=== PATIENT | female | born 1960 | race African-American/Black ===

== ENCOUNTER 2016-12-04 15:17 | Emergency (ER) | payer MEDICAID ==
[~2016-12-04] VITALS: Ht 162.6 cm; Wt 90.0 kg
[~2016-12-04 15:17] MED LIST: ALBU4TAB6 INH; BENA5TAB3 PO; DICY20TA11 PO; FLUT1DIS IH; GLIP5TAB12 PO; HYDR-3927 PO; OMEP40CA34 PO; TRIA1CAP PO
[2016-12-04] MEDS ORDERED: SODIUM CHLORIDE 0.9% 1,000 ML IV ONE (16:33)
[2016-12-04] MEDS ORDERED: FAMOTIDINE 20MG/2ML VIAL IV STA (16:33)
[2016-12-04] MEDS ORDERED: ONDANSETRON HCL 4MG/2ML VIAL IV STA (16:33)
[2016-12-04 17:11] LABS: BASOPHILS % 0.9 % (0.0-2.0); HEMATOCRIT. 37.7 % (36.0-48.0); HEMOGLOBIN. 12.9 g/dL (12.0-16.0); LYMPHOCYTES % 28.9 % (20.0-50.0); MEAN CORPUSCULAR HEMOGLOBIN 25.9 pg (28.0-32.0); MEAN CORPUSCULAR VOLUME 75.4 fL (81.0-99.0); MEAN PLATELET VOLUME 9.5 fl (7.4-10.4); MONOCYTES % 8.4 % (2.0-8.0); NEUTROPHILS % 59.8 % (40.0-76.0); PLATELET 245 x1000/uL (130-400); RED CELL DISTRIBUTION WIDTH 15.5 % (11.6-14.6)
[2016-12-04 17:14] LABS: CHLORIDE 104 mEq/L (98-107)
[2016-12-04 17:16] LABS: PROTHROMBIN TIME 10.7 sec (9.4-11.6)
[2016-12-04 17:18] LABS: CARBON DIOXIDE 28 mEq/L (21-32)
[2016-12-04 17:21] LABS: CLARITY URINE CLEAR (CLEAR); COLOR URINE YELLOW (YELLOW); GLUCOSE URINE NEGATIVE (NEGATIVE); KETONES URINE NEGATIVE (NEGATIVE); LEUKOCYTE ESTERASE URINE NEGATIVE (NEGATIVE); NITRITE URINE NEGATIVE (NEGATIVE); OCCULT BLOOD URINE TRACE (NEGATIVE); PROTEIN URINE NEGATIVE (NEGATIVE); SPECIFIC GRAVITY URINE 1.012 (1.005-1.030); UROBILINOGEN URINE 0.2 E.U./dL (0.2-1.0)
[2016-12-04 18:45] VITALS: BP 136/87
[2016-12-04] MEDS ORDERED: ACETAMINOPHEN 325MG TABLET PO ONE (19:00)
== END 2016-12-04 19:11 | disposition home or self-care (01) ==
LOC: ER 15:22
DX: R11.2 Nausea with vomiting, unspecified (principal); R19.7 Diarrhea, unspecified; B86 Scabies; M79.602 Pain in left arm; M79.601 Pain in right arm; I10 Essential (primary) hypertension; E11.9 Type 2 diabetes mellitus without complications; J45.909 Unspecified asthma, uncomplicated; M19.90 Unspecified osteoarthritis, unspecified site
CPT/HCPCS: 36415; 80053; 81001; 81025; 83605; 83690; 85025; 85610; 93005; 96361; 96374; 96375; 99285; J2405; J3490; J7030; Z7610

== ENCOUNTER 2017-07-16 14:52 | Emergency (ER) | payer OTHER ==
[~2017-07-16] VITALS: Ht 162.6 cm; Wt 80.0 kg
[2017-07-16 18:49] LABS: BASOPHILS % 0.8 % (0.0-2.0); HEMATOCRIT. 36.7 % (36.0-48.0); HEMOGLOBIN. 12.5 g/dL (12.0-16.0); LYMPHOCYTES % 30.9 % (20.0-50.0); MEAN CORPUSCULAR HEMOGLOBIN 25.4 pg (28.0-32.0); MEAN CORPUSCULAR VOLUME 74.3 fL (81.0-99.0); MEAN PLATELET VOLUME 8.9 fl (7.4-10.4); MONOCYTES % 8.8 % (2.0-8.0); NEUTROPHILS % 57.5 % (40.0-76.0); PLATELET 229 x1000/uL (130-400); RED BLOOD CELL COUNT 4.93 mill/uL (4.2-5.4); RED CELL DISTRIBUTION WIDTH 15.9 % (11.6-14.6)
[2017-07-16 18:54] LABS: CHLORIDE 105 mEq/L (98-107)
[2017-07-16 18:56] LABS: PROTHROMBIN TIME 10.7 sec (9.4-11.6)
[2017-07-16 20:33] VITALS: BP 140/85
== END 2017-07-16 20:33 | disposition home or self-care (01) ==
LOC: ER 14:56
DX: J06.9 Acute upper respiratory infection, unspecified (principal); B34.9 Viral infection, unspecified; E11.9 Type 2 diabetes mellitus without complications; E78.00 Pure hypercholesterolemia, unspecified; I10 Essential (primary) hypertension; J45.909 Unspecified asthma, uncomplicated; Z79.84 Long term (current) use of oral hypoglycemic drugs; Z90.49 Acquired absence of other specified parts of digestive tract; Z96.659 Presence of unspecified artificial knee joint
CPT/HCPCS: 36415; 71045; 80053; 83880; 84484; 85025; 85610; 93005; 99285; J7040; Z7610

== ENCOUNTER 2017-12-04 15:11 | Emergency (ER) | payer OTHER, MEDICAID ==
[~2017-12-04 15:11] MED LIST changes: -BENA5TAB3 PO; +BENA5TAB6 PO
[2017-12-04] MEDS ORDERED: ASPIRIN 81MG TABLET PO ONE (16:45)
[2017-12-04 18:32] LABS: BASOPHILS % 0.6 % (0.0-2.0); CHLORIDE 105 mEq/L (98-107); EOSINOPHILS % 1.8 % (0.0-5.0); HEMATOCRIT. 41.1 % (36.0-48.0); HEMOGLOBIN. 14.1 g/dL (12.0-16.0); LYMPHOCYTES % 32.2 % (20.0-50.0); MEAN CORPUSCULAR HEMOGLOBIN 26.3 pg (28.0-32.0); MEAN CORPUSCULAR VOLUME 76.6 fL (81.0-99.0); MEAN PLATELET VOLUME 9.5 fl (7.4-10.4); MONOCYTES % 6.9 % (2.0-8.0); NEUTROPHILS % 58.5 % (40.0-76.0); PLATELET 220 x1000/uL (130-400); RED BLOOD CELL COUNT 5.37 mill/uL (4.2-5.4); RED CELL DISTRIBUTION WIDTH 15.6 % (11.6-14.6)
[2017-12-04 18:33] LABS: PARTIAL THROMBOPLASTIN TIME 25.6 sec (23.4-31.0); PROTHROMBIN TIME 10.4 sec (9.1-11.1)
[2017-12-04] MEDS ORDERED: IBUPROFEN 400MG TABLET PO ONE (19:15)
[2017-12-04 20:00] VITALS: BP 139/83
== END 2017-12-04 20:20 | disposition home or self-care (01) ==
LOC: ER 16:28
DX: S93.402A Sprain of unspecified ligament of left ankle, initial encounter (principal); H60.92 Unspecified otitis externa, left ear; R07.9 Chest pain, unspecified; E11.9 Type 2 diabetes mellitus without complications; I20.9 Angina pectoris, unspecified; Z90.49 Acquired absence of other specified parts of digestive tract; Z79.899 Other long term (current) drug therapy; Z96.651 Presence of right artificial knee joint; W18.39XA Other fall on same level, initial encounter; Y93.89 Activity, other specified; Y92.89 Other specified places as the place of occurrence of the external cause; Y99.8 Other external cause status
CPT/HCPCS: 36415; 71045; 73610; 80053; 83880; 84484; 85025; 85610; 85730; 93005; 99284; 99285

== ENCOUNTER 2018-01-24 06:55 | Emergency (ER) | payer OTHER, MEDICAID ==
[~2018-01-24] VITALS: Ht 170.2 cm; Wt 91.0 kg
[2018-01-24] MEDS ORDERED: MORPHINE SULFATE 2 MG/ML CPJ (NOT FOR IM USE) IV ONE (07:30)
[2018-01-24 07:32] LABS: BASOPHILS % 0.6 % (0.0-2.0); EOSINOPHILS % 2.2 % (0.0-5.0); HEMATOCRIT. 40.6 % (36.0-48.0); HEMOGLOBIN. 13.9 g/dL (12.0-16.0); LYMPHOCYTES % 29.6 % (20.0-50.0); MEAN CORPUSCULAR HEMOGLOBIN 26.2 pg (28.0-32.0); MEAN CORPUSCULAR VOLUME 76.6 fL (81.0-99.0); MEAN PLATELET VOLUME 9.2 fl (7.4-10.4); MONOCYTES % 7.1 % (2.0-8.0); NEUTROPHILS % 60.5 % (40.0-76.0); PLATELET 218 x1000/uL (130-400); RED CELL DISTRIBUTION WIDTH 15.3 % (11.6-14.6)
[2018-01-24 07:44] LABS: CHLORIDE 105 mEq/L (98-107)
[2018-01-24 07:48] LABS: PROTHROMBIN TIME 10.2 sec (9.1-11.1)
[2018-01-24] MEDS ORDERED: MAGNESIUM/ALUMINUM HYDROXIDE/SIMETHICONE 30ML UDC PO STA (10:03)
[2018-01-24] MEDS ORDERED: VISCOUS LIDOCAINE 2% 15 ML UDC PO STA (10:03)
[2018-01-24 10:27] VITALS: BP 121/59
== END 2018-01-24 10:32 | disposition home or self-care (01) ==
LOC: ER 06:55
DX: R07.9 Chest pain, unspecified (principal); R19.7 Diarrhea, unspecified; E11.9 Type 2 diabetes mellitus without complications; I10 Essential (primary) hypertension; I20.9 Angina pectoris, unspecified; M19.90 Unspecified osteoarthritis, unspecified site; Z79.899 Other long term (current) drug therapy
CPT/HCPCS: 36415; 71045; 74176; 76700; 80053; 83880; 84484; 85025; 85610; 93005; 96374; 99285; J2270

== ENCOUNTER 2018-08-08 15:09 | Inpatient (IN) | payer MEDICAID, OTHER ==
[~2018-08-08] VITALS: Ht 170.2 cm; Wt 103.6 kg
[2018-08-08] MEDS ORDERED: ASPIRIN 81MG TABLET PO ONE (15:45)
[2018-08-08] MEDS ORDERED: VISCOUS LIDOCAINE 2% 15 ML UDC PO ONE (16:00)
[2018-08-08] MEDS ORDERED: MAGNESIUM/ALUMINUM HYDROXIDE/SIMETHICONE 30ML UDC PO ONE (16:00)
[2018-08-08] MEDS ORDERED: ONDANSETRON HCL 4MG/2ML INJ IV ONE (16:00)
[2018-08-08 16:34] LABS: CLARITY URINE CLEAR (CLEAR); COLOR URINE YELLOW (YELLOW); KETONES URINE NEGATIVE (NEGATIVE); LEUKOCYTE ESTERASE URINE NEGATIVE (NEGATIVE); NITRITE URINE NEGATIVE (NEGATIVE); OCCULT BLOOD URINE TRACE (NEGATIVE); PH URINE 6.5 (4.5-8.0); PROTEIN URINE NEGATIVE (NEGATIVE); SPECIFIC GRAVITY URINE 1.014 (1.005-1.030)
[2018-08-08 16:36] LABS: BASOPHILS % 0.6 % (0.0-2.0); EOSINOPHILS % 2.9 % (0.0-5.0); HEMATOCRIT. 39.9 % (36.0-48.0); HEMOGLOBIN. 13.7 g/dL (12.0-16.0); LYMPHOCYTES % 35.4 % (20.0-50.0); MEAN CORPUSCULAR HEMOGLOBIN 26.4 pg (28.0-32.0); MEAN CORPUSCULAR VOLUME 76.7 fL (81.0-99.0); MEAN PLATELET VOLUME 9.4 fl (7.4-10.4); MONOCYTES % 8.5 % (2.0-8.0); NEUTROPHILS % 52.6 % (40.0-76.0); PLATELET 235 x1000/uL (130-400); RED CELL DISTRIBUTION WIDTH 15.2 % (11.6-14.6)
[2018-08-08 16:38] LABS: CHLORIDE 106 mEq/L (98-107)
[2018-08-08 21:20] VITALS: BP 154/71
[2018-08-08 21:29] VITALS: BP 154/71
[2018-08-08] MEDS ORDERED: DEXTROSE 50% WATER 50ML SYRINGE IV PRN (22:30)
[2018-08-08] MEDS: MORPHINE SULFATE 4 MG/ML CPJ (NOT FOR IM USE) IV PRN (23:28)
[2018-08-08] MEDS: ENOXAPARIN 30MG/0.3ML SYR SUBCUT SCH (23:29)
[2018-08-08] MEDS: METOPROLOL TARTRATE 50MG TABLET PO SCH (23:29)
[2018-08-09] VITALS: BP 147/67
[2018-08-09] MEDS: INSULIN GLARGINE UD 100 UNITS/ML SYR SUBCUT SCH ×2 (00:30→22:29)
[2018-08-09 04:00] VITALS: BP 125/76
[2018-08-09] MEDS: MORPHINE SULFATE 4 MG/ML CPJ (NOT FOR IM USE) IV PRN ×2 (04:33→18:45)
[2018-08-09] MEDS: BLOOD SUGAR DIAGNOSTIC STRIP TEST SCH ×4 (06:36→21:00)
[2018-08-09] MEDS: NITROGLYCERIN OINT 1GM/INCH UDPKT TD SCH ×3 (06:36→22:28)
[2018-08-09] MEDS: INSULIN LISPRO 100 UNITS/ML SUBCUT SCH ×4 (06:37→20:51)
[2018-08-09 06:49] LABS: BASOPHILS % 0.4 % (0.0-2.0); EOSINOPHILS % 3.3 % (0.0-5.0); HEMATOCRIT. 38.1 % (36.0-48.0); HEMOGLOBIN. 13.2 g/dL (12.0-16.0); MEAN CORPUSCULAR HEMOGLOBIN 26.3 pg (28.0-32.0); MEAN CORPUSCULAR VOLUME 76.3 fL (81.0-99.0); MEAN PLATELET VOLUME 8.9 fl (7.4-10.4); MONOCYTES % 7.8 % (2.0-8.0); NEUTROPHILS % 51.5 % (40.0-76.0); PLATELET 222 x1000/uL (130-400); RED CELL DISTRIBUTION WIDTH 15.2 % (11.6-14.6)
[2018-08-09 07:25] LABS: CHLORIDE 107 mEq/L (98-107)
[2018-08-09 07:36] LABS: LDL CHOLESTEROL 100 mg/dL (5-100)
[2018-08-09 07:37] LABS: HDL CHOLESTEROL 71 mg/dL (40-59)
[2018-08-09 08:00] VITALS: BP 114/64
[2018-08-09] MEDS: METOPROLOL TARTRATE 50MG TABLET PO SCH ×2 (08:34→20:47)
[2018-08-09] MEDS: ASPIRIN 81MG TABLET PO SCH (08:34)
[2018-08-09] MEDS: ENOXAPARIN 30MG/0.3ML SYR SUBCUT SCH ×2 (08:34→20:48)
[2018-08-09] MEDS: OMEPRAZOLE 20MG CAPSULE EXTENDED RELEASE PO SCH (09:44)
[2018-08-09 12:00] VITALS: BP 97/67
[2018-08-09 16:00] VITALS: BP 118/65
[2018-08-09 19:51] VITALS: BP 96/45
[2018-08-09] MEDS ORDERED: ATORVASTATIN CALCIUM 40MG TABLET PO SCH (21:00)
[2018-08-10] VITALS: BP 119/63
[2018-08-10 04:00] VITALS: BP 141/87
[2018-08-10] MEDS: OMEPRAZOLE 20MG CAPSULE EXTENDED RELEASE PO SCH (06:17)
[2018-08-10] MEDS: MORPHINE SULFATE 4 MG/ML CPJ (NOT FOR IM USE) IV PRN (06:17)
[2018-08-10] MEDS: INSULIN LISPRO 100 UNITS/ML SUBCUT SCH ×2 (06:30→12:20)
[2018-08-10] MEDS: NITROGLYCERIN OINT 1GM/INCH UDPKT TD SCH (06:30)
[2018-08-10] MEDS: BLOOD SUGAR DIAGNOSTIC STRIP TEST SCH ×2 (06:30→12:15)
[2018-08-10 06:32] LABS: BASOPHILS % 0.4 % (0.0-2.0); EOSINOPHILS % 3.3 % (0.0-5.0); HEMATOCRIT. 38.5 % (36.0-48.0); HEMOGLOBIN. 13.4 g/dL (12.0-16.0); LYMPHOCYTES % 33.1 % (20.0-50.0); MEAN CORPUSCULAR HEMOGLOBIN 26.8 pg (28.0-32.0); MEAN CORPUSCULAR VOLUME 77.1 fL (81.0-99.0); MEAN PLATELET VOLUME 9.6 fl (7.4-10.4); MONOCYTES % 7.4 % (2.0-8.0); NEUTROPHILS % 55.8 % (40.0-76.0); PLATELET 226 x1000/uL (130-400); RED BLOOD CELL COUNT 4.99 mill/uL (4.2-5.4); RED CELL DISTRIBUTION WIDTH 15.5 % (11.6-14.6)
[2018-08-10 06:46] LABS: CHLORIDE 104 mEq/L (98-107)
[2018-08-10 08:00] VITALS: BP 128/77
[2018-08-10] MEDS: METOPROLOL TARTRATE 50MG TABLET PO SCH (08:26)
[2018-08-10] MEDS: ASPIRIN 81MG TABLET PO SCH (08:26)
[2018-08-10] MEDS: ENOXAPARIN 30MG/0.3ML SYR SUBCUT SCH (08:27)
[2018-08-10 12:00] VITALS: BP 111/58
[2018-08-10 12:56] VITALS: BP 111/58
== END 2018-08-10 14:07 | disposition home or self-care (01) | DRG 243 ==
LOC: ER 15:09 → 5WST 19:25 → EDBEDREQ 19:27 → EDBEDREQTM 19:27 → ENRESERV 20:42
PROVIDERS: ADMIT Internal Medicine; ATTEND Internal Medicine
DX: K21.9 Gastro-esophageal reflux disease without esophagitis (principal); K76.0 Fatty (change of) liver, not elsewhere classified; R16.0 Hepatomegaly, not elsewhere classified; E11.9 Type 2 diabetes mellitus without complications; E66.9 Obesity, unspecified; I10 Essential (primary) hypertension; Z96.652 Presence of left artificial knee joint; Z90.49 Acquired absence of other specified parts of digestive tract; Z68.35 Body mass index [BMI] 35.0-35.9, adult; Z79.899 Other long term (current) drug therapy
CPT/HCPCS: 36415; 71045; 72050; 76705; 80048; 80061; 82962; 83036; 83520; 83880; 84484; 93005; 93306; 97116; 97161; 99285; C1893; J1650; J1815; J2270; J2405

== ENCOUNTER 2018-11-22 06:49 | Emergency (ER) | payer MEDICAID ==
[~2018-11-22] VITALS: Ht 160 cm; Wt 91.0 kg
[2018-11-22 08:16] LABS: CLARITY URINE CLOUDY (CLEAR); COLOR URINE YELLOW (YELLOW); KETONES URINE NEGATIVE (NEGATIVE); LEUKOCYTE ESTERASE URINE TRACE (NEGATIVE); NITRITE URINE NEGATIVE (NEGATIVE); OCCULT BLOOD URINE NEGATIVE (NEGATIVE); PH URINE 5.5 (4.5-8.0); PROTEIN URINE NEGATIVE (NEGATIVE); SPECIFIC GRAVITY URINE 1.021 (1.005-1.030); UROBILINOGEN URINE 0.2 E.U./dL (0.2-1.0)
[2018-11-22] MEDS ORDERED: ACETAMINOPHEN 325MG TABLET PO STA (08:39)
[2018-11-22] MEDS ORDERED: KETOROLAC 30MG/ML VIAL IV STA (08:39)
[2018-11-22] MEDS ORDERED: SODIUM CHLORIDE 0.9% 1,000 ML IV ONE (08:39)
[2018-11-22] MEDS ORDERED: ONDANSETRON HCL 4MG/2ML INJ IV STA (08:39)
[2018-11-22 09:41] LABS: BASOPHILS % 0.9 % (0.0-2.0); EOSINOPHILS % 2.7 % (0.0-5.0); HEMATOCRIT. 39.4 % (36.0-48.0); HEMOGLOBIN. 13.9 g/dL (12.0-16.0); LYMPHOCYTES % 24.7 % (20.0-50.0); MEAN CORPUSCULAR VOLUME 76.7 fL (81.0-99.0); MEAN PLATELET VOLUME 9.6 fl (7.4-10.4); MONOCYTES % 6.8 % (2.0-8.0); NEUTROPHILS % 64.9 % (40.0-76.0); PLATELET 236 x1000/uL (130-400); RED BLOOD CELL COUNT 5.14 mill/uL (4.2-5.4); RED CELL DISTRIBUTION WIDTH 15.3 % (11.6-14.6)
[2018-11-22 09:42] LABS: CHLORIDE 107 mEq/L (98-107)
[2018-11-22 13:00] VITALS: BP 131/69
== END 2018-11-22 13:05 | disposition home or self-care (01) ==
LOC: ER 06:49 → CVICU 06:50 → UNDOADMIN 06:50 → ER 13:05
DX: R10.9 Unspecified abdominal pain (principal); R11.2 Nausea with vomiting, unspecified; E11.9 Type 2 diabetes mellitus without complications; I10 Essential (primary) hypertension; Z96.659 Presence of unspecified artificial knee joint; Z79.899 Other long term (current) drug therapy
CPT/HCPCS: 36415; 74177; 80053; 81003; 81025; 82962; 83690; 85025; 96361; 96374; 96375; 99284; J1885; J2405; J7030

== ENCOUNTER 2019-06-05 15:00 | Emergency (ER) | payer MEDICAID ==
[~2019-06-05] VITALS: Ht 160 cm; Wt 90.0 kg
[~2019-06-05 15:00] MED LIST changes: +OMEP40CA12 PO; -OMEP40CA34 PO
[2019-06-05 19:09] VITALS: BP 158/88
[2019-06-05] MEDS ORDERED: IBUPROFEN 600MG TABLET PO STA (20:40)
[2019-06-05 21:21] LABS: BASOPHILS % 0.8 % (0.0-2.0); EOSINOPHILS % 3.7 % (0.0-5.0); HEMATOCRIT. 39.2 % (36.0-48.0); HEMOGLOBIN. 13.4 g/dL (12.0-16.0); LYMPHOCYTES % 32.5 % (20.0-50.0); MEAN CORPUSCULAR HEMOGLOBIN 26.2 pg (28.0-32.0); MEAN CORPUSCULAR VOLUME 76.8 fL (81.0-99.0); MEAN PLATELET VOLUME 9.2 fl (7.4-10.4); MONOCYTES % 7.9 % (2.0-8.0); NEUTROPHILS % 55.1 % (40.0-76.0); PLATELET 233 x1000/uL (130-400); RED BLOOD CELL COUNT 5.11 mill/uL (4.2-5.4); RED CELL DISTRIBUTION WIDTH 15.5 % (11.6-14.6)
[2019-06-05 21:26] LABS: CHLORIDE 105 mEq/L (98-107)
== END 2019-06-05 22:40 | disposition left against medical advice (07) ==
LOC: ER 15:00
DX: R07.9 Chest pain, unspecified (principal); E11.9 Type 2 diabetes mellitus without complications; I10 Essential (primary) hypertension; Z96.659 Presence of unspecified artificial knee joint
CPT/HCPCS: 36415; 71045; 80053; 84484; 85025; 93005; 99285

== ENCOUNTER 2019-06-06 10:12 | Inpatient (IN) | payer MEDICAID ==
[~2019-06-06] VITALS: Ht 160 cm; Wt 95.3 kg
[2019-06-06] MEDS ORDERED: ASPIRIN 81MG TABLET PO ONE (14:45)
[2019-06-06 15:23] LABS: BASOPHILS % 0.8 % (0.0-2.0); EOSINOPHILS % 3.3 % (0.0-5.0); HEMATOCRIT. 41.2 % (36.0-48.0); HEMOGLOBIN. 14.1 g/dL (12.0-16.0); LYMPHOCYTES % 32.6 % (20.0-50.0); MEAN CORPUSCULAR HEMOGLOBIN 26.5 pg (28.0-32.0); MEAN CORPUSCULAR VOLUME 77.4 fL (81.0-99.0); MEAN PLATELET VOLUME 9.3 fl (7.4-10.4); MONOCYTES % 6.3 % (2.0-8.0); PLATELET 253 x1000/uL (130-400); RED BLOOD CELL COUNT 5.32 mill/uL (4.2-5.4); RED CELL DISTRIBUTION WIDTH 15.1 % (11.6-14.6)
[2019-06-06 15:29] LABS: CHLORIDE 103 mEq/L (98-107)
[2019-06-06] MEDS ORDERED: NITROGLYCERIN 0.4MG TABLET SL SL ONE ×2 (16:30→20:45)
[2019-06-06] MEDS ORDERED: ONDANSETRON HCL 4MG/2ML INJ IV PRN (19:30)
[2019-06-06] MEDS ORDERED: DEXTROSE 50% WATER 50ML SYRINGE IV PRN (19:30)
[2019-06-06 20:32] LABS: CLARITY URINE CLEAR (CLEAR); COLOR URINE YELLOW (YELLOW); KETONES URINE NEGATIVE (NEGATIVE); LEUKOCYTE ESTERASE URINE TRACE (NEGATIVE); NITRITE URINE NEGATIVE (NEGATIVE); OCCULT BLOOD URINE NEGATIVE (NEGATIVE); PROTEIN URINE NEGATIVE (NEGATIVE); SPECIFIC GRAVITY URINE 1.009 (1.005-1.030); UROBILINOGEN URINE 0.2 E.U./dL (0.2-1.0)
[2019-06-06 21:19] LABS: *AMPHETAMINES SCREEN URINE NEGATIVE (NEGATIVE); *BARBITURATES SCREEN URINE NEGATIVE (NEGATIVE); *BENZODIAZEPINES SCREEN URINE NEGATIVE (NEGATIVE); *COCAINE SCREEN URINE NEGATIVE (NEGATIVE); METHADONE URINE SCREEN NEGATIVE (NEGATIVE); OPIATES URINE SCREEN NEGATIVE (NEGATIVE)
[2019-06-06 21:20] LABS: CANNABINOID URINE SCREEN NEGATIVE (NEGATIVE); PHENCYCLIDINE URINE SCREEN NEGATIVE (NEGATIVE)
[2019-06-06 22:25] VITALS: BP 124/59
[2019-06-06 23:04] VITALS: BP 124/59
[2019-06-07] VITALS: BP 112/52
[2019-06-07 04:00] VITALS: BP 131/77
[2019-06-07] MEDS: BLOOD SUGAR DIAGNOSTIC STRIP TEST SCH ×4 (06:21→21:00)
[2019-06-07] MEDS: INSULIN LISPRO 100 UNITS/ML SUBCUT SCH ×4 (06:28→21:00)
[2019-06-07 07:50] VITALS: BP 117/58
[2019-06-07] MEDS: KETOROLAC 30MG/ML VIAL IV PRN ×2 (07:54→16:59)
[2019-06-07 12:00] VITALS: BP 128/51
[2019-06-07] MEDS: ASPIRIN 81MG EC TABLET PO SCH (12:00)
[2019-06-07] MEDS: METOPROLOL TARTRATE 25MG TABLET PO SCH ×2 (12:01→22:40)
[2019-06-07] MEDS: ENOXAPARIN 30MG/0.3ML SYR SUBCUT SCH ×2 (12:02→22:41)
[2019-06-07 16:00] VITALS: BP 128/51
[2019-06-07 20:00] VITALS: BP 129/56
[2019-06-08] VITALS: BP 104/41
[2019-06-08] MEDS: KETOROLAC 30MG/ML VIAL IV PRN ×2 (00:50→10:06)
[2019-06-08 04:00] VITALS: BP 113/62
[2019-06-08] MEDS: BLOOD SUGAR DIAGNOSTIC STRIP TEST SCH ×2 (06:36→12:27)
[2019-06-08 07:03] LABS: CHLORIDE 104 mEq/L (98-107)
[2019-06-08 07:17] LABS: BASOPHILS % 0.5 % (0.0-2.0); EOSINOPHILS % 2.9 % (0.0-5.0); HEMATOCRIT. 36.9 % (36.0-48.0); HEMOGLOBIN. 12.9 g/dL (12.0-16.0); LYMPHOCYTES % 37.9 % (20.0-50.0); MEAN CORPUSCULAR HEMOGLOBIN 26.6 pg (28.0-32.0); MEAN CORPUSCULAR VOLUME 75.9 fL (81.0-99.0); MEAN PLATELET VOLUME 9.8 fl (7.4-10.4); MONOCYTES % 9.5 % (2.0-8.0); NEUTROPHILS % 49.2 % (40.0-76.0); PLATELET 235 x1000/uL (130-400); RED BLOOD CELL COUNT 4.86 mill/uL (4.2-5.4); RED CELL DISTRIBUTION WIDTH 15.4 % (11.6-14.6)
[2019-06-08] MEDS: INSULIN LISPRO 100 UNITS/ML SUBCUT SCH ×2 (07:50→12:27)
[2019-06-08 08:00] VITALS: BP 132/67
[2019-06-08] MEDS ORDERED: ALBUTEROL SULFATE INH SCH (08:30)
[2019-06-08] MEDS ORDERED: FLUTICASONE IH SCH (08:30)
[2019-06-08] MEDS ORDERED: HYDROCODONE/ACETAMINOPHEN 5/325MG TABLET PO PRN (08:30)
[2019-06-08] MEDS ORDERED: SALMETEROL IH SCH (08:30)
[2019-06-08] MEDS ORDERED: BENAZEPRIL 5MG TABLET PO SCH (09:00)
[2019-06-08] MEDS ORDERED: MEDICATION NOT ON FORMULARY EA (Omeprazole 40 MG) PO SCH (09:00)
[2019-06-08] MEDS: ENOXAPARIN 30MG/0.3ML SYR SUBCUT SCH (09:31)
[2019-06-08] MEDS: METOPROLOL TARTRATE 25MG TABLET PO SCH (09:32)
[2019-06-08] MEDS: ASPIRIN 81MG EC TABLET PO SCH (09:32)
[2019-06-08] MEDS ORDERED: PANTOPRAZOLE 40MG DR TABLET PO SCH (10:00)
[2019-06-08] MEDS ORDERED: GLIPIZIDE 5MG TABLET PO SCH (10:00)
[2019-06-08] MEDS: DICYCLOMINE HCL 20MG TABLET PO SCH ×2 (10:05→12:28)
[2019-06-08] MEDS ORDERED: CLOPIDOGREL 75MG TABLET PO SCH (11:30)
[2019-06-08 12:00] VITALS: BP 108/84
[2019-06-08] MEDS ORDERED: ALBUTEROL (0.083%) 2.5MG/3ML NEB HHN SCH (12:00)
[2019-06-08] MEDS ORDERED: BUDESONIDE 0.5MG/2ML NEB HHN SCH (12:00)
[2019-06-08] MEDS ORDERED: ASPI-1158 PO (15:16)
[2019-06-08] MEDS ORDERED: METO-539 PO (15:16)
[2019-06-08] MEDS ORDERED: ATOR20TA PO (15:16)
[2019-06-08] MEDS ORDERED: NITR0.4T49 SL (15:16)
[2019-06-08] MEDS ORDERED: ACET650T37 MT (15:16)
[2019-06-08] MEDS ORDERED: CLOP75TA15 PO (15:16)
[2019-06-08 15:42] VITALS: BP 108/84
[2019-06-08] MEDS ORDERED: METOPROLOL TARTRATE 50MG TABLET PO SCH (21:00)
[2019-06-08] MEDS ORDERED: ATORVASTATIN CALCIUM 20MG TABLET PO SCH (21:00)
== END 2019-06-08 16:30 | disposition home or self-care (01) | DRG 203 ==
LOC: ER 10:36 → 5WST 18:14 → EDBEDREQ 18:16 → EDBEDREQTM 18:16 → ENRESERV 21:16 → 6WST 06-07 08:07
PROVIDERS: ADMIT Internal Medicine; ATTEND Internal Medicine
DX: M94.0 Chondrocostal junction syndrome [Tietze] (principal); M48.02 Spinal stenosis, cervical region; E11.9 Type 2 diabetes mellitus without complications; E66.9 Obesity, unspecified; E78.5 Hyperlipidemia, unspecified; F17.210 Nicotine dependence, cigarettes, uncomplicated; I10 Essential (primary) hypertension; J45.909 Unspecified asthma, uncomplicated; Z96.659 Presence of unspecified artificial knee joint; M19.90 Unspecified osteoarthritis, unspecified site; Z83.3 Family history of diabetes mellitus; Z90.49 Acquired absence of other specified parts of digestive tract; Z79.899 Other long term (current) drug therapy; Z71.6 Tobacco abuse counseling; Z71.3 Dietary counseling and surveillance; Z68.37 Body mass index [BMI] 37.0-37.9, adult
CPT/HCPCS: 36415; 80048; 80053; 80305; 81003; 82962; 83880; 84484; 85025; 93005; 93306; 99285; J1650; J1815; J1885

== ENCOUNTER 2019-11-20 16:01 | Emergency (ER) | payer MEDICAID ==
[~2019-11-20] VITALS: Ht 160 cm; Wt 91.0 kg
[~2019-11-20 16:01] MED LIST changes: +ACET650T37 MT; +ASPI-1158 PO; +ATOR20TA PO; -BENA5TAB6 PO; +CLOP75TA15 PO; +METO-539 PO; +NITR0.4T49 SL; -TRIA1CAP PO
[2019-11-20] MEDS ORDERED: SODIUM CHLORIDE 0.9% 1,000 ML IV ONE (17:15)
[2019-11-20] MEDS ORDERED: ASPIRIN 81MG TABLET PO ONE (17:15)
[2019-11-20 17:39] LABS: BASOPHILS % 0.5 % (0.0-2.0); EOSINOPHILS % 1.5 % (0.0-5.0); HEMATOCRIT. 40.6 % (36.0-48.0); HEMOGLOBIN. 13.7 g/dL (12.0-16.0); LYMPHOCYTES % 30.5 % (20.0-50.0); MEAN CORPUSCULAR HEMOGLOBIN 26.2 pg (28.0-32.0); MEAN CORPUSCULAR VOLUME 77.7 fL (81.0-99.0); MEAN PLATELET VOLUME 10.1 fl (7.4-10.4); MONOCYTES % 7.4 % (2.0-8.0); NEUTROPHILS % 60.1 % (40.0-76.0); PLATELET 221 x1000/uL (130-400); RED BLOOD CELL COUNT 5.23 mill/uL (4.2-5.4); RED CELL DISTRIBUTION WIDTH 15.3 % (11.6-14.6)
[2019-11-20 17:44] LABS: CHLORIDE 104 mEq/L (98-107)
[2019-11-20 19:01] LABS: CLARITY URINE CLEAR (CLEAR); COLOR URINE YELLOW (YELLOW); KETONES URINE NEGATIVE (NEGATIVE); LEUKOCYTE ESTERASE URINE 2+ (NEGATIVE); NITRITE URINE NEGATIVE (NEGATIVE); OCCULT BLOOD URINE NEGATIVE (NEGATIVE); PH URINE 7.5 (4.5-8.0); PROTEIN URINE NEGATIVE (NEGATIVE); SPECIFIC GRAVITY URINE 1.012 (1.005-1.030); UROBILINOGEN URINE 0.2 E.U./dL (0.2-1.0)
[2019-11-20] MEDS ORDERED: VISCOUS LIDOCAINE 2% 15 ML UDC PO STA (21:19)
[2019-11-20] MEDS ORDERED: MAGNESIUM/ALUMINUM HYDROXIDE/SIMETHICONE 30ML UDC PO STA (21:19)
[2019-11-20 22:23] VITALS: BP 118/77
== END 2019-11-20 22:22 | disposition home or self-care (01) ==
LOC: ER 16:01
DX: R07.9 Chest pain, unspecified (principal); R53.1 Weakness; E11.9 Type 2 diabetes mellitus without complications; E78.00 Pure hypercholesterolemia, unspecified; I10 Essential (primary) hypertension; Z79.82 Long term (current) use of aspirin; Z90.49 Acquired absence of other specified parts of digestive tract; Z96.659 Presence of unspecified artificial knee joint
CPT/HCPCS: 36415; 71045; 80053; 81003; 84484; 85025; 93005; 96360; 99285; J7030; Z7610

== ENCOUNTER 2019-12-19 13:16 | Emergency (ER) | payer MEDICAID ==
[~2019-12-19] VITALS: Ht 170.2 cm; Wt 104.0 kg
[2019-12-19] MEDS ORDERED: SODIUM CHLORIDE 0.9% 1,000 ML IV ONE (13:54)
[2019-12-19] MEDS ORDERED: ONDANSETRON HCL 4MG/2ML INJ IV STA (13:54)
[2019-12-19 14:29] LABS: EOSINOPHILS % 1.5 % (0.0-5.0); HEMATOCRIT. 38.5 % (36.0-48.0); HEMOGLOBIN. 13.3 g/dL (12.0-16.0); MEAN CORPUSCULAR HEMOGLOBIN 26.7 pg (28.0-32.0); MEAN PLATELET VOLUME 9.5 fl (7.4-10.4); MONOCYTES % 8.5 % (2.0-8.0); PLATELET 220 x1000/uL (130-400); RED BLOOD CELL COUNT 4.99 mill/uL (4.2-5.4); RED CELL DISTRIBUTION WIDTH 15.2 % (11.6-14.6)
[2019-12-19 14:37] LABS: CHLORIDE 106 mEq/L (98-107)
[2019-12-19 16:29] LABS: CLARITY URINE CLEAR (CLEAR); COLOR URINE YELLOW (YELLOW); KETONES URINE NEGATIVE (NEGATIVE); LEUKOCYTE ESTERASE URINE 2+ (NEGATIVE); NITRITE URINE NEGATIVE (NEGATIVE); OCCULT BLOOD URINE NEGATIVE (NEGATIVE); PROTEIN URINE NEGATIVE (NEGATIVE); SPECIFIC GRAVITY URINE 1.019 (1.005-1.030)
[2019-12-19 17:51] VITALS: BP 127/66
== END 2019-12-19 18:22 | disposition home or self-care (01) ==
LOC: ER 13:28
DX: K52.9 Noninfective gastroenteritis and colitis, unspecified (principal); E11.9 Type 2 diabetes mellitus without complications; E78.00 Pure hypercholesterolemia, unspecified; I10 Essential (primary) hypertension; Z90.49 Acquired absence of other specified parts of digestive tract; Z79.899 Other long term (current) drug therapy
CPT/HCPCS: 36415; 80053; 81003; 82962; 83690; 85025; 96374; 99283; J2405; J7030

== ENCOUNTER 2020-01-02 15:12 | Emergency (ER) | payer MEDICAID ==
[~2020-01-02] VITALS: Ht 160 cm; Wt 91.0 kg
[2020-01-02] MEDS ORDERED: SODIUM CHLORIDE 0.9% 1,000 ML IV ONE (15:36)
[2020-01-02] MEDS ORDERED: ONDANSETRON HCL 4MG/2ML INJ IV STA (15:36)
[2020-01-02 15:53] LABS: BASOPHILS % 1.3 % (0.0-2.0); EOSINOPHILS % 1.8 % (0.0-5.0); HEMATOCRIT. 39.9 % (36.0-48.0); HEMOGLOBIN. 13.4 g/dL (12.0-16.0); LYMPHOCYTES % 30.9 % (20.0-50.0); MEAN CORPUSCULAR HEMOGLOBIN 26.2 pg (28.0-32.0); MEAN CORPUSCULAR VOLUME 77.9 fL (81.0-99.0); MEAN PLATELET VOLUME 9.7 fl (7.4-10.4); MONOCYTES % 7.4 % (2.0-8.0); NEUTROPHILS % 58.6 % (40.0-76.0); PLATELET 190 x1000/uL (130-400); RED BLOOD CELL COUNT 5.13 mill/uL (4.2-5.4); RED CELL DISTRIBUTION WIDTH 15.3 % (11.6-14.6)
[2020-01-02 16:12] LABS: CHLORIDE 108 mEq/L (98-107)
[2020-01-02 16:16] LABS: ETHANOL BLOOD < 10 mg/dL
[2020-01-02] MEDS ORDERED: ONDANSETRON HCL 4MG/2ML INJ IV ONE (18:00)
[2020-01-02] MEDS ORDERED: IBUPROFEN 600MG TABLET PO ONE (19:15)
[2020-01-02 20:24] VITALS: BP 143/74
== END 2020-01-02 20:25 | disposition home or self-care (01) ==
LOC: ER 15:12
DX: R07.89 Other chest pain (principal); R53.1 Weakness; J45.909 Unspecified asthma, uncomplicated; E11.9 Type 2 diabetes mellitus without complications; Z79.899 Other long term (current) drug therapy
CPT/HCPCS: 36415; 71045; 80053; 80320; 84484; 85025; 93005; 96361; 96374; 96376; 99285; J2405; J7030; G0480

== ENCOUNTER 2020-03-01 14:20 | Emergency (ER) | payer OTHER ==
[~2020-03-01] VITALS: Ht 165.1 cm; Wt 70.0 kg
[2020-03-01 17:35] LABS: BASOPHILS % 0.7 % (0.0-2.0); EOSINOPHILS % 0.4 % (0.0-5.0); HEMATOCRIT. 38.9 % (36.0-48.0); HEMOGLOBIN. 13.4 g/dL (12.0-16.0); LYMPHOCYTES % 30.8 % (20.0-50.0); MEAN CORPUSCULAR HEMOGLOBIN 26.9 pg (28.0-32.0); MEAN CORPUSCULAR VOLUME 78.2 fL (81.0-99.0); MEAN PLATELET VOLUME 9.7 fl (7.4-10.4); MONOCYTES % 7.7 % (2.0-8.0); NEUTROPHILS % 60.4 % (40.0-76.0); PLATELET 244 x1000/uL (130-400); RED BLOOD CELL COUNT 4.97 mill/uL (4.2-5.4); RED CELL DISTRIBUTION WIDTH 15.3 % (11.6-14.6)
[2020-03-01 17:45] LABS: PROTHROMBIN TIME 10.8 sec (9.6-11.0)
[2020-03-01 17:48] LABS: CHLORIDE 108 mEq/L (98-107)
[2020-03-01] MEDS ORDERED: ONDANSETRON HCL 4MG/2ML INJ IV ONE (18:15)
[2020-03-01] MEDS ORDERED: KETOROLAC 15MG/ML VIAL IV ONE (18:15)
[2020-03-01 18:35] LABS: CLARITY URINE CLEAR (CLEAR); COLOR URINE YELLOW (YELLOW); KETONES URINE NEGATIVE (NEGATIVE); LEUKOCYTE ESTERASE URINE NEGATIVE (NEGATIVE); NITRITE URINE NEGATIVE (NEGATIVE); OCCULT BLOOD URINE NEGATIVE (NEGATIVE); PROTEIN URINE NEGATIVE (NEGATIVE); SPECIFIC GRAVITY URINE 1.028 (1.005-1.030); UROBILINOGEN URINE 0.2 E.U./dL (0.2-1.0)
[2020-03-01 18:50] LABS: *AMPHETAMINES SCREEN URINE NEGATIVE (NEGATIVE); CANNABINOID URINE SCREEN NEGATIVE (NEGATIVE)
[2020-03-01 18:51] LABS: *BARBITURATES SCREEN URINE NEGATIVE (NEGATIVE); *BENZODIAZEPINES SCREEN URINE NEGATIVE (NEGATIVE); *COCAINE SCREEN URINE NEGATIVE (NEGATIVE); METHADONE URINE SCREEN NEGATIVE (NEGATIVE); OPIATES URINE SCREEN NEGATIVE (NEGATIVE)
[2020-03-01 18:52] LABS: PHENCYCLIDINE URINE SCREEN NEGATIVE (NEGATIVE)
[2020-03-01] MEDS ORDERED: AMOXICILLIN/POTASSIUM CLAVULANATE 875/125MG TAB PO ONE (19:00)
[2020-03-01 19:20] VITALS: BP 130/60
== END 2020-03-01 19:25 | disposition home or self-care (01) ==
LOC: ER 14:34
DX: H66.92 Otitis media, unspecified, left ear (principal); R10.31 Right lower quadrant pain; I10 Essential (primary) hypertension; E11.9 Type 2 diabetes mellitus without complications; Z79.82 Long term (current) use of aspirin; Z98.890 Other specified postprocedural states
CPT/HCPCS: 36415; 71045; 80053; 80305; 81003; 83690; 85025; 85610; 93005; 96374; 96375; 99285; J1885; J2405

== ENCOUNTER 2020-03-22 20:12 | Emergency (ER) | payer OTHER ==
[~2020-03-22] VITALS: Ht 165.1 cm; Wt 91.0 kg
[2020-03-22] MEDS ORDERED: KETOROLAC 60MG/2ML VIAL IM ONE (23:30)
[2020-03-23 01:09] LABS: BASOPHILS % 0.6 % (0.0-2.0); EOSINOPHILS % 0.5 % (0.0-5.0); HEMATOCRIT. 38.4 % (36.0-48.0); HEMOGLOBIN. 13.2 g/dL (12.0-16.0); MEAN CORPUSCULAR HEMOGLOBIN 26.9 pg (28.0-32.0); MEAN PLATELET VOLUME 9.3 fl (7.4-10.4); MONOCYTES % 7.6 % (2.0-8.0); NEUTROPHILS % 61.3 % (40.0-76.0); PLATELET 251 x1000/uL (130-400); RED BLOOD CELL COUNT 4.92 mill/uL (4.2-5.4); RED CELL DISTRIBUTION WIDTH 15.2 % (11.6-14.6)
[2020-03-23 01:10] LABS: CHLORIDE 103 mEq/L (98-107)
[2020-03-23 01:34] LABS: CLARITY URINE CLEAR (CLEAR); COLOR URINE YELLOW (YELLOW); KETONES URINE NEGATIVE (NEGATIVE); LEUKOCYTE ESTERASE URINE NEGATIVE (NEGATIVE); NITRITE URINE NEGATIVE (NEGATIVE); OCCULT BLOOD URINE NEGATIVE (NEGATIVE); PROTEIN URINE NEGATIVE (NEGATIVE); SPECIFIC GRAVITY URINE 1.018 (1.005-1.030); UROBILINOGEN URINE 0.2 E.U./dL (0.2-1.0)
[2020-03-23 02:10] VITALS: BP 160/76
== END 2020-03-23 02:20 | disposition home or self-care (01) ==
LOC: ER 20:12
DX: R10.9 Unspecified abdominal pain (principal); G89.29 Other chronic pain; J45.909 Unspecified asthma, uncomplicated; E11.9 Type 2 diabetes mellitus without complications; I10 Essential (primary) hypertension; Z79.82 Long term (current) use of aspirin; Z79.899 Other long term (current) drug therapy
CPT/HCPCS: 36415; 80053; 81003; 81025; 83690; 85025; 93005; 96372; 99284; J1885

== ENCOUNTER 2020-05-18 07:47 | Inpatient (IN) | payer MEDICAID, OTHER ==
[~2020-05-18] VITALS: Ht 160 cm; Wt 89.8 kg
[~2020-05-18 07:47] MED LIST changes: -ASPI-1158 PO; +ASPI-1406 PO
[2020-05-18] MEDS ORDERED: IBUPROFEN 600MG TABLET PO STA (08:32)
[2020-05-18] MEDS ORDERED: VISCOUS LIDOCAINE 2% 15 ML UDC PO ONE (08:45)
[2020-05-18] MEDS ORDERED: MAGNESIUM/ALUMINUM HYDROXIDE/SIMETHICONE 30ML UDC PO ONE (08:45)
[2020-05-18 09:07] LABS: BASOPHILS % 0.8 % (0.0-2.0); EOSINOPHILS % 1.1 % (0.0-5.0); HEMATOCRIT. 38.7 % (36.0-48.0); HEMOGLOBIN. 13.3 g/dL (12.0-16.0); LYMPHOCYTES % 29.7 % (20.0-50.0); MEAN CORPUSCULAR HEMOGLOBIN 26.8 pg (28.0-32.0); MEAN CORPUSCULAR VOLUME 78.1 fL (81.0-99.0); MEAN PLATELET VOLUME 9.7 fl (7.4-10.4); MONOCYTES % 6.4 % (2.0-8.0); PLATELET 229 x1000/uL (130-400); RED BLOOD CELL COUNT 4.95 mill/uL (4.2-5.4); RED CELL DISTRIBUTION WIDTH 14.4 % (11.6-14.6)
[2020-05-18 09:09] LABS: CHLORIDE 107 mEq/L (98-107)
[2020-05-18] MEDS ORDERED: HYDROCODONE/ACETAMINOPHEN 5/325MG TABLET PO ONE (11:30)
[2020-05-18] MEDS ORDERED: ASPIRIN 325MG EC TABLET PO ONE (12:00)
[2020-05-18] MEDS ORDERED: REGADENOSON 0.4 MG/5 ML IV ONE (14:00)
[2020-05-18] MEDS: MORPHINE SULFATE 2 MG/ML CPJ (NOT FOR IM USE) IV PRN ×2 (19:01→23:41)
[2020-05-18] MEDS: AMLODIPINE 5MG TABLET PO SCH (21:30)
[2020-05-18] MEDS ORDERED: DOCUSATE SODIUM 100MG CAPSULE PO PRN (21:45)
[2020-05-18] MEDS ORDERED: DEXTROSE 50% WATER 50ML SYRINGE IV PRN ×2 (21:45)
[2020-05-18] MEDS ORDERED: ENOXAPARIN 40MG/0.4ML SYR SUBCUT SCH (21:45)
[2020-05-19 01:00] VITALS: BP 118/53
[2020-05-19 01:30] VITALS: BP 118/53
[2020-05-19 04:00] VITALS: BP 139/39
[2020-05-19] MEDS: OMEPRAZOLE 20MG CAPSULE EXTENDED RELEASE PO SCH (06:11)
[2020-05-19] MEDS: BLOOD SUGAR DIAGNOSTIC STRIP TEST SCH ×4 (06:11→21:22)
[2020-05-19 07:07] LABS: BASOPHILS % 0.3 % (0.0-2.0); EOSINOPHILS % 1.3 % (0.0-5.0); HEMATOCRIT. 42.5 % (36.0-48.0); HEMOGLOBIN. 14.5 g/dL (12.0-16.0); LYMPHOCYTES % 29.4 % (20.0-50.0); MEAN CORPUSCULAR HEMOGLOBIN 26.3 pg (28.0-32.0); MEAN CORPUSCULAR VOLUME 77.2 fL (81.0-99.0); MEAN PLATELET VOLUME 10.4 fl (7.4-10.4); MONOCYTES % 6.2 % (2.0-8.0); NEUTROPHILS % 62.8 % (40.0-76.0); PLATELET 239 x1000/uL (130-400); RED CELL DISTRIBUTION WIDTH 14.5 % (11.6-14.6)
[2020-05-19 07:19] LABS: CHLORIDE 104 mEq/L (98-107)
[2020-05-19 07:34] LABS: PHOSPHORUS 3.8 mg/dL (2.5-4.9)
[2020-05-19 07:35] LABS: LDL CHOLESTEROL 117 mg/dL (5-100)
[2020-05-19 07:39] LABS: HDL CHOLESTEROL 83 mg/dL (40-59)
[2020-05-19] MEDS: INSULIN LISPRO 100 UNITS/ML SUBCUT SCH ×4 (07:50→21:15)
[2020-05-19] MEDS ORDERED: REGADENOSON 0.4 MG/5 ML IV ONE (08:48)
[2020-05-19 09:08] VITALS: BP 130/56
[2020-05-19] MEDS: MORPHINE SULFATE 2 MG/ML CPJ (NOT FOR IM USE) IV PRN ×2 (11:28→21:08)
[2020-05-19] MEDS: AMLODIPINE 5MG TABLET PO SCH ×2 (11:28→21:16)
[2020-05-19] MEDS: ENOXAPARIN 30MG/0.3ML SYR SUBCUT SCH ×2 (11:30→21:07)
[2020-05-19 16:00] VITALS: BP 141/77
[2020-05-19] MEDS: ACETAMINOPHEN 325MG TABLET PO PRN (18:23)
[2020-05-19 20:00] VITALS: BP 120/70
[2020-05-19] MEDS ORDERED: ATORVASTATIN CALCIUM 40MG TABLET PO SCH (21:00)
[2020-05-20] VITALS: BP 140/75
[2020-05-20 04:00] VITALS: BP 115/70
[2020-05-20] MEDS: OMEPRAZOLE 20MG CAPSULE EXTENDED RELEASE PO SCH (05:17)
[2020-05-20] MEDS: BLOOD SUGAR DIAGNOSTIC STRIP TEST SCH ×2 (05:24→12:20)
[2020-05-20] MEDS: ACETAMINOPHEN 325MG TABLET PO PRN (05:25)
[2020-05-20 07:32] LABS: BASOPHILS % 0.6 % (0.0-2.0); EOSINOPHILS % 1.8 % (0.0-5.0); HEMATOCRIT. 39.5 % (36.0-48.0); HEMOGLOBIN. 13.6 g/dL (12.0-16.0); LYMPHOCYTES % 31.2 % (20.0-50.0); MEAN CORPUSCULAR HEMOGLOBIN 26.7 pg (28.0-32.0); MEAN CORPUSCULAR VOLUME 77.7 fL (81.0-99.0); MEAN PLATELET VOLUME 10.2 fl (7.4-10.4); MONOCYTES % 8.1 % (2.0-8.0); NEUTROPHILS % 58.3 % (40.0-76.0); PLATELET 225 x1000/uL (130-400); RED BLOOD CELL COUNT 5.08 mill/uL (4.2-5.4); RED CELL DISTRIBUTION WIDTH 14.6 % (11.6-14.6)
[2020-05-20 07:37] LABS: CHLORIDE 102 mEq/L (98-107)
[2020-05-20] MEDS: INSULIN LISPRO 100 UNITS/ML SUBCUT SCH ×2 (07:50→12:50)
[2020-05-20 08:00] VITALS: BP 134/88
[2020-05-20] MEDS: AMLODIPINE 5MG TABLET PO SCH (09:13)
[2020-05-20] MEDS: MORPHINE SULFATE 2 MG/ML CPJ (NOT FOR IM USE) IV PRN (09:14)
[2020-05-20] MEDS: ENOXAPARIN 30MG/0.3ML SYR SUBCUT SCH (09:14)
[2020-05-20 12:00] VITALS: BP 135/72
[2020-05-20] MEDS ORDERED: ONDANSETRON HCL 4MG/2ML INJ IV PRN (12:15)
[2020-05-20 12:27] VITALS: BP 135/68
[2020-05-21] MEDS ORDERED: FAMOTIDINE 20MG TABLET PO SCH (09:00)
== END 2020-05-20 16:05 | disposition home or self-care (01) | DRG 203 ==
LOC: ER 08:03 → MICUSO 13:21 → 6WST 05-19 00:11
PROVIDERS: ADMIT Internal Medicine; ATTEND Internal Medicine
DX: M94.0 Chondrocostal junction syndrome [Tietze] (principal); E11.9 Type 2 diabetes mellitus without complications; E44.1 Mild protein-calorie malnutrition; Z68.35 Body mass index [BMI] 35.0-35.9, adult; I10 Essential (primary) hypertension; E78.5 Hyperlipidemia, unspecified; J45.909 Unspecified asthma, uncomplicated; Z96.652 Presence of left artificial knee joint; Z82.49 Family history of ischemic heart disease and other diseases of the circulatory system; Z79.899 Other long term (current) drug therapy; Z79.82 Long term (current) use of aspirin; Z90.49 Acquired absence of other specified parts of digestive tract; Z20.822 Contact with and (suspected) exposure to COVID-19
CPT/HCPCS: 36415; 71045; 78452; 80048; 80053; 80061; 82962; 83036; 83735; 84100; 84443; 84484; 85025; 87426; 93005; 93017; 93306; 93970; 97162; 97166; 99285; A9500; J1650; J1815; J2270; J2405; J2785

== ENCOUNTER 2020-06-22 05:01 | Emergency (ER) | payer MEDICAID, OTHER ==
[~2020-06-22] VITALS: Ht 167.6 cm; Wt 68.0 kg
[2020-06-22 06:04] LABS: BASOPHILS % 0.6 % (0.0-2.0); EOSINOPHILS % 1.6 % (0.0-5.0); HEMATOCRIT. 39.9 % (36.0-48.0); HEMOGLOBIN. 13.5 g/dL (12.0-16.0); LYMPHOCYTES % 27.7 % (20.0-50.0); MEAN CORPUSCULAR HEMOGLOBIN 26.1 pg (28.0-32.0); MEAN CORPUSCULAR VOLUME 77.1 fL (81.0-99.0); MEAN PLATELET VOLUME 9.5 fl (7.4-10.4); MONOCYTES % 6.5 % (2.0-8.0); NEUTROPHILS % 63.6 % (40.0-76.0); PLATELET 224 x1000/uL (130-400); RED BLOOD CELL COUNT 5.17 mill/uL (4.2-5.4)
[2020-06-22 06:05] LABS: CHLORIDE 105 mEq/L (98-107)
[2020-06-22] MEDS ORDERED: ACETAMINOPHEN 325MG TABLET PO ONE (07:30)
[2020-06-22] MEDS ORDERED: MAGNESIUM/ALUMINUM HYDROXIDE/SIMETHICONE 30ML UDC PO ONE (07:30)
[2020-06-22] MEDS ORDERED: PANT40SU PO (07:57)
[2020-06-22 09:07] VITALS: BP 125/64
== END 2020-06-22 07:30 | disposition home or self-care (01) ==
LOC: ER 05:01
DX: R07.89 Other chest pain (principal); E11.9 Type 2 diabetes mellitus without complications; J45.909 Unspecified asthma, uncomplicated; I10 Essential (primary) hypertension; Z79.899 Other long term (current) drug therapy; Z90.49 Acquired absence of other specified parts of digestive tract; Z96.652 Presence of left artificial knee joint
CPT/HCPCS: 36415; 71045; 80053; 83880; 84484; 85025; 85379; 93005; 99285

== ENCOUNTER 2020-07-16 13:03 | Emergency (ER) | payer MEDICAID, OTHER ==
[~2020-07-16] VITALS: Ht 162.6 cm; Wt 91.0 kg
[~2020-07-16 13:03] MED LIST changes: +PANT40SU PO
[2020-07-16] MEDS ORDERED: ONDANSETRON HCL 4MG/2ML INJ IV STA (13:47)
[2020-07-16] MEDS ORDERED: SODIUM CHLORIDE 0.9% 1,000 ML IV ONE (14:00)
[2020-07-16] MEDS: MORPHINE SULFATE 4 MG/ML CPJ (NOT FOR IM USE) IV STA ×2 (14:14→15:48)
[2020-07-16 14:22] LABS: BASOPHILS % 1.1 % (0.0-2.0); EOSINOPHILS % 0.6 % (0.0-5.0); HEMATOCRIT. 38.5 % (36.0-48.0); HEMOGLOBIN. 13.4 g/dL (12.0-16.0); LYMPHOCYTES % 25.1 % (20.0-50.0); MEAN CORPUSCULAR HEMOGLOBIN 26.4 pg (28.0-32.0); MEAN CORPUSCULAR VOLUME 76.1 fL (81.0-99.0); MEAN PLATELET VOLUME 9.4 fl (7.4-10.4); MONOCYTES % 5.7 % (2.0-8.0); NEUTROPHILS % 67.5 % (40.0-76.0); PLATELET 256 x1000/uL (130-400); RED BLOOD CELL COUNT 5.06 mill/uL (4.2-5.4); RED CELL DISTRIBUTION WIDTH 15.3 % (11.6-14.6)
[2020-07-16 14:27] LABS: CHLORIDE 103 mEq/L (98-107)
[2020-07-16 14:30] LABS: INR 1.1; PROTHROMBIN TIME 11.3 sec (9.6-11.0)
[2020-07-16 16:13] LABS: CLARITY URINE CLEAR (CLEAR); COLOR URINE YELLOW (YELLOW); KETONES URINE NEGATIVE (NEGATIVE); LEUKOCYTE ESTERASE URINE NEGATIVE (NEGATIVE); NITRITE URINE NEGATIVE (NEGATIVE); OCCULT BLOOD URINE NEGATIVE (NEGATIVE); PROTEIN URINE NEGATIVE (NEGATIVE); SPECIFIC GRAVITY URINE 1.015 (1.005-1.030); UROBILINOGEN URINE 0.2 E.U./dL (0.2-1.0)
[2020-07-16 17:00] VITALS: BP 133/72
[2020-07-16] MEDS ORDERED: METOCLOPRAMIDE HCL 10MG/2ML VIAL IV ONE (17:00)
[2020-07-16] MEDS ORDERED: HYDR-4001 MT (17:16)
[2020-07-16] MEDS ORDERED: ONDA4TAB11 PO (17:18)
== END 2020-07-16 17:49 | disposition home or self-care (01) ==
LOC: ER 13:16
DX: R10.9 Unspecified abdominal pain (principal); R11.2 Nausea with vomiting, unspecified; J45.909 Unspecified asthma, uncomplicated; E11.9 Type 2 diabetes mellitus without complications; E78.00 Pure hypercholesterolemia, unspecified; I10 Essential (primary) hypertension; Z79.899 Other long term (current) drug therapy
CPT/HCPCS: 36415; 74177; 80053; 81003; 83690; 85025; 85610; 96361; 96374; 96375; 99285; J2270; J2405; J2765; J7030

== ENCOUNTER 2020-09-30 12:46 | Emergency (ER) | payer MEDICAID, OTHER ==
[~2020-09-30] VITALS: Ht 160 cm; Wt 85.0 kg
[~2020-09-30 12:46] MED LIST changes: -HYDR-3927 PO; +HYDR-4001 MT; +ONDA4TAB11 PO
[2020-09-30] MEDS ORDERED: FAMOTIDINE 20MG/2ML VIAL IV STA (13:25)
[2020-09-30] MEDS ORDERED: ONDANSETRON HCL 4MG/2ML INJ IV STA (13:25)
[2020-09-30] MEDS ORDERED: SODIUM CHLORIDE 0.9% 1,000 ML IV ONE (13:30)
[2020-09-30 14:03] LABS: BASOPHILS % 0.9 % (0.0-2.0); EOSINOPHILS % 1.1 % (0.0-5.0); HEMOGLOBIN. 13.9 g/dL (12.0-16.0); LYMPHOCYTES % 29.7 % (20.0-50.0); MEAN CORPUSCULAR HEMOGLOBIN 27.3 pg (28.0-32.0); MEAN CORPUSCULAR VOLUME 76.8 fL (81.0-99.0); MEAN PLATELET VOLUME 9.5 fl (7.4-10.4); MONOCYTES % 6.8 % (2.0-8.0); NEUTROPHILS % 61.5 % (40.0-76.0); PLATELET 220 x1000/uL (130-400); RED BLOOD CELL COUNT 5.07 mill/uL (4.2-5.4); RED CELL DISTRIBUTION WIDTH 15.1 % (11.6-14.6)
[2020-09-30 14:09] LABS: CHLORIDE 106 mEq/L (98-107)
[2020-09-30] MEDS ORDERED: MORPHINE SULFATE 10 MG/ML CPJ IV ONE ×2 (15:15→15:30)
[2020-09-30 15:17] LABS: CLARITY URINE CLEAR (CLEAR); COLOR URINE YELLOW (YELLOW); KETONES URINE NEGATIVE (NEGATIVE); LEUKOCYTE ESTERASE URINE NEGATIVE (NEGATIVE); NITRITE URINE NEGATIVE (NEGATIVE); OCCULT BLOOD URINE NEGATIVE (NEGATIVE); PH URINE 5.5 (4.5-8.0); PROTEIN URINE NEGATIVE (NEGATIVE); SPECIFIC GRAVITY URINE 1.021 (1.005-1.030); UROBILINOGEN URINE 0.2 E.U./dL (0.2-1.0)
[2020-09-30] MEDS ORDERED: ONDANSETRON HCL 4MG/2ML INJ IV ONE (15:30)
[2020-09-30] MEDS ORDERED: ONDA4TAB5 MT (16:02)
[2020-09-30] MEDS ORDERED: OMEP20CA14 MT (16:02)
[2020-09-30 18:57] LABS: HCG SCREEN NEGATIVE
[2020-09-30 19:30] VITALS: BP 107/72
== END 2020-09-30 19:38 | disposition home or self-care (01) ==
LOC: ER 12:46
DX: R10.9 Unspecified abdominal pain (principal); R11.10 Vomiting, unspecified; I10 Essential (primary) hypertension; J45.909 Unspecified asthma, uncomplicated; E11.9 Type 2 diabetes mellitus without complications; E78.00 Pure hypercholesterolemia, unspecified
CPT/HCPCS: 36415; 71045; 80053; 81003; 83690; 84703; 85025; 85610; 96361; 96374; 96375; 99284; J2270; J2405; J3490; J7030; Z7610

== ENCOUNTER 2020-10-10 23:39 | Inpatient (IN) | payer MEDICAID ==
[~2020-10-10] VITALS: Ht 160 cm; Wt 90.3 kg
[~2020-10-10 23:39] MED LIST changes: +OMEP20CA14 MT; +ONDA4TAB5 MT
[2020-10-11] MEDS ORDERED: ONDANSETRON HCL 4MG/2ML INJ IV STA (00:19)
[2020-10-11] MEDS ORDERED: MORPHINE SULFATE 4 MG/ML CPJ (NOT FOR IM USE) IV STA (00:19)
[2020-10-11] MEDS ORDERED: SODIUM CHLORIDE 0.9% 1,000 ML IV ONE (00:30)
[2020-10-11 00:58] LABS: BASOPHILS % 0.6 % (0.0-2.0); EOSINOPHILS % 1.7 % (0.0-5.0); HEMATOCRIT. 37.5 % (36.0-48.0); LYMPHOCYTES % 40.4 % (20.0-50.0); MEAN CORPUSCULAR HEMOGLOBIN 26.8 pg (28.0-32.0); MEAN CORPUSCULAR VOLUME 77.6 fL (81.0-99.0); MEAN PLATELET VOLUME 9.4 fl (7.4-10.4); NEUTROPHILS % 49.3 % (40.0-76.0); PLATELET 230 x1000/uL (130-400); RED BLOOD CELL COUNT 4.84 mill/uL (4.2-5.4); RED CELL DISTRIBUTION WIDTH 14.8 % (11.6-14.6)
[2020-10-11 01:05] LABS: CHLORIDE 103 mEq/L (98-107)
[2020-10-11] MEDS ORDERED: MORPHINE SULFATE 4 MG/ML CPJ (NOT FOR IM USE) IV ONE (03:45)
[2020-10-11] MEDS ORDERED: LORAZEPAM 2MG/ML CPJ IV PRN (07:30)
[2020-10-11] MEDS ORDERED: ACETAMINOPHEN 325MG TABLET PO PRN (07:30)
[2020-10-11] MEDS ORDERED: CLONIDINE 0.1MG TABLET PO PRN (07:30)
[2020-10-11] MEDS ORDERED: MAGNESIUM/ALUMINUM HYDROXIDE/SIMETHICONE 30ML UDC PO PRN (07:30)
[2020-10-11] MEDS ORDERED: ONDANSETRON HCL 4MG/2ML INJ IV PRN (07:30)
[2020-10-11] MEDS ORDERED: IPRATROPIUM/ALBUTEROL 0.5-3(2.5)MG/3ML NEB NEB PRN (07:30)
[2020-10-11] MEDS ORDERED: DIPHENHYDRAMINE 50MG/ML VIAL IV PRN (07:30)
[2020-10-11] MEDS ORDERED: DOCUSATE SODIUM 100MG CAPSULE PO PRN (07:30)
[2020-10-11] MEDS ORDERED: HYDROCODONE/ACETAMINOPHEN 5/325MG TABLET PO PRN (07:30)
[2020-10-11] MEDS ORDERED: NA PHOS,M-B/NA PHOS,DI-BA ENEMA 118ML PR PRN (07:30)
[2020-10-11] MEDS ORDERED: GUAIFENESIN 200MG/10ML SUGAR FREE UDC PO PRN (07:30)
[2020-10-11] MEDS ORDERED: ENOXAPARIN 40MG/0.4ML SYR SUBCUT SCH (09:00)
[2020-10-11] MEDS ORDERED: ASPIRIN 81MG EC TABLET PO SCH (09:00)
[2020-10-11] MEDS: MORPHINE SULFATE 2 MG/ML CPJ (NOT FOR IM USE) IV PRN ×2 (10:06→21:28)
[2020-10-11 12:15] LABS: CHLORIDE 104 mEq/L (98-107)
[2020-10-11] MEDS: BLOOD SUGAR DIAGNOSTIC STRIP TEST SCH ×4 (14:39→21:20)
[2020-10-11] MEDS ORDERED: DEXTROSE 50% WATER 50ML SYRINGE IV PRN (14:45)
[2020-10-11] MEDS: INSULIN LISPRO 100 UNITS/ML SUBCUT SCH ×3 (14:55→21:00)
[2020-10-11 16:01] VITALS: BP 128/72
[2020-10-11 16:30] VITALS: BP 134/82
[2020-10-11 16:45] VITALS: BP 134/82
[2020-10-11 20:00] VITALS: BP 121/58
[2020-10-11 21:52] LABS: CREATINE KINASE 65 IU/L (26-192)
[2020-10-11 21:54] LABS: CREATINE KINASE MB FRACTION < 1.0 ng/mL (0.5-3.6)
[2020-10-12] VITALS: BP 141/72
[2020-10-12 04:00] VITALS: BP 137/73
[2020-10-12] MEDS: MORPHINE SULFATE 2 MG/ML CPJ (NOT FOR IM USE) IV PRN (04:52)
[2020-10-12 08:00] VITALS: BP 120/65
[2020-10-12 08:26] VITALS: BP 120/86
[2020-10-12 08:59] LABS: BASOPHILS % 0.9 % (0.0-2.0); EOSINOPHILS % 2.4 % (0.0-5.0); HEMATOCRIT. 39.3 % (36.0-48.0); HEMOGLOBIN. 13.7 g/dL (12.0-16.0); LYMPHOCYTES % 34.3 % (20.0-50.0); MEAN CORPUSCULAR HEMOGLOBIN 27.4 pg (28.0-32.0); MEAN CORPUSCULAR VOLUME 78.4 fL (81.0-99.0); MEAN PLATELET VOLUME 9.6 fl (7.4-10.4); MONOCYTES % 5.9 % (2.0-8.0); NEUTROPHILS % 56.5 % (40.0-76.0); PLATELET 236 x1000/uL (130-400); RED BLOOD CELL COUNT 5.02 mill/uL (4.2-5.4); RED CELL DISTRIBUTION WIDTH 15.1 % (11.6-14.6)
[2020-10-12 09:07] LABS: CHLORIDE 102 mEq/L (98-107)
[2020-10-12 09:14] LABS: LDL CHOLESTEROL 107 mg/dL (5-100)
[2020-10-12 09:15] LABS: CREATINE KINASE 66 IU/L (26-192); CREATINE KINASE MB FRACTION 1.2 ng/mL (0.5-3.6); HDL CHOLESTEROL 88 mg/dL (40-59)
[2020-10-12 09:16] LABS: T4 FREE 0.95 ng/dL (0.76-1.46)
== END 2020-10-12 11:15 | disposition home or self-care (01) | DRG 203 ==
LOC: ER 23:39 → EDBEDREQ 10-11 04:52 → EDBEDREQTM 10-11 04:52 → ENRESERV 10-11 15:22 → 6WST 10-11 17:17
PROVIDERS: ADMIT Internal Medicine; ATTEND Internal Medicine
DX: M94.0 Chondrocostal junction syndrome [Tietze] (principal); E46 Unspecified protein-calorie malnutrition; I11.0 Hypertensive heart disease with heart failure; I50.9 Heart failure, unspecified; I48.91 Unspecified atrial fibrillation; E11.9 Type 2 diabetes mellitus without complications; E78.00 Pure hypercholesterolemia, unspecified; J45.909 Unspecified asthma, uncomplicated; I25.10 Atherosclerotic heart disease of native coronary artery without angina pectoris; E78.5 Hyperlipidemia, unspecified; Z79.1 Long term (current) use of non-steroidal anti-inflammatories (NSAID); Z79.82 Long term (current) use of aspirin; Z79.899 Other long term (current) drug therapy; Z82.49 Family history of ischemic heart disease and other diseases of the circulatory system; Z68.35 Body mass index [BMI] 35.0-35.9, adult; Z79.84 Long term (current) use of oral hypoglycemic drugs
CPT/HCPCS: 36415; 71045; 74176; 80048; 80053; 80061; 82550; 82553; 82962; 83036; 83880; 84439; 84443; 84484; 85025; 85379; 93005; 93306; 99285; J1650; J1815; J2270; J2405; J7030

== ENCOUNTER 2020-11-08 07:51 | Inpatient (IN) | payer OTHER ==
[~2020-11-08] VITALS: Ht 160 cm; Wt 107.0 kg
[~2020-11-08 07:51] MED LIST changes: +HYDR-4346 MT
[2020-11-08 08:45] LABS: CLARITY URINE CLEAR (CLEAR); COLOR URINE YELLOW (YELLOW); KETONES URINE NEGATIVE (NEGATIVE); LEUKOCYTE ESTERASE URINE NEGATIVE (NEGATIVE); NITRITE URINE NEGATIVE (NEGATIVE); OCCULT BLOOD URINE NEGATIVE (NEGATIVE); PH URINE 6.5 (4.5-8.0); PROTEIN URINE NEGATIVE (NEGATIVE); SPECIFIC GRAVITY URINE 1.009 (1.005-1.030); UROBILINOGEN URINE 0.2 E.U./dL (0.2-1.0)
[2020-11-08 08:47] LABS: BASOPHILS % 0.4 % (0.0-2.0); EOSINOPHILS % 1.4 % (0.0-5.0); HEMATOCRIT. 36.5 % (36.0-48.0); LYMPHOCYTES % 27.4 % (20.0-50.0); MEAN CORPUSCULAR HEMOGLOBIN 27.3 pg (28.0-32.0); MEAN CORPUSCULAR VOLUME 76.6 fL (81.0-99.0); MEAN PLATELET VOLUME 9.3 fl (7.4-10.4); MONOCYTES % 6.8 % (2.0-8.0); PLATELET 223 x1000/uL (130-400); RED BLOOD CELL COUNT 4.77 mill/uL (4.2-5.4); RED CELL DISTRIBUTION WIDTH 15.1 % (11.6-14.6)
[2020-11-08 08:51] LABS: CHLORIDE 105 mEq/L (98-107)
[2020-11-08] MEDS ORDERED: KETOROLAC 60MG/2ML VIAL IM ONE (09:45)
[2020-11-08] MEDS ORDERED: ACETAMINOPHEN WITH CODEINE 300/30MG TABLET PO ONE (09:45)
[2020-11-08] MEDS ORDERED: PREDNISONE 20MG TABLET PO STA (09:56)
[2020-11-08] MEDS ORDERED: ALBUTEROL (0.083%) 2.5MG/3ML NEB HHN STA (09:56)
[2020-11-08] MEDS ORDERED: IPRATROPIUM BROMIDE (0.02%) 0.5MG/2.5ML NEB HHN STA (09:56)
[2020-11-08] MEDS ORDERED: OXYCODONE HCL/ACETAMINOPHEN 5/325MG TABLET PO ONE (11:15)
[2020-11-08] MEDS: BLOOD SUGAR DIAGNOSTIC STRIP TEST SCH ×3 (13:00→21:35)
[2020-11-08] MEDS ORDERED: NALOXONE HCL 0.4MG/ML VIAL IV PRN (13:00)
[2020-11-08] MEDS ORDERED: IPRATROPIUM/ALBUTEROL 0.5-3(2.5)MG/3ML NEB HHN PRN (13:00)
[2020-11-08] MEDS ORDERED: DEXTROSE 50% WATER 50ML SYRINGE IV PRN (13:00)
[2020-11-08] MEDS ORDERED: ONDANSETRON HCL 4MG/2ML INJ IV PRN (13:00)
[2020-11-08] MEDS ORDERED: CLONIDINE 0.1MG TABLET PO PRN (13:00)
[2020-11-08] MEDS ORDERED: ACETAMINOPHEN 325MG TABLET PO PRN ×2 (13:00)
[2020-11-08] MEDS ORDERED: LORAZEPAM 0.5MG TABLET PO PRN (13:00)
[2020-11-08] MEDS ORDERED: DOCUSATE SODIUM 100MG CAPSULE PO PRN (13:00)
[2020-11-08 14:00] LABS: HCG SCREEN NEGATIVE
[2020-11-08] MEDS: DICYCLOMINE HCL 20MG TABLET PO SCH ×2 (15:00→23:06)
[2020-11-08 15:10] VITALS: BP 142/72
[2020-11-08] MEDS: ASPIRIN 81MG EC TABLET PO SCH (15:43)
[2020-11-08] MEDS: CLOPIDOGREL 75MG TABLET PO SCH (15:43)
[2020-11-08] MEDS: METOPROLOL TARTRATE 50MG TABLET PO SCH ×2 (15:43→21:34)
[2020-11-08] MEDS: OMEPRAZOLE 20MG CAPSULE EXTENDED RELEASE PO SCH (15:44)
[2020-11-08] MEDS: INSULIN LISPRO 100 UNITS/ML SUBCUT SCH ×3 (15:53→21:51)
[2020-11-08 16:00] VITALS: BP 135/64
[2020-11-08 16:05] VITALS: BP 143/72
[2020-11-08 20:00] VITALS: BP 124/71
[2020-11-08] MEDS: ATORVASTATIN CALCIUM 20MG TABLET PO SCH (21:31)
[2020-11-08] MEDS: HYDROCODONE/ACETAMINOPHEN 5/325MG TABLET PO PRN (21:48)
[2020-11-09] VITALS: BP 113/56
[2020-11-09] MEDS: SODIUM CHLORIDE 0.9% 1,000 ML IV SCH ×3 (00:25→22:21)
[2020-11-09 04:00] VITALS: BP 130/70
[2020-11-09 05:56] LABS: BASOPHILS % 0.3 % (0.0-2.0); EOSINOPHILS % 0.2 % (0.0-5.0); HEMATOCRIT. 37.5 % (36.0-48.0); HEMOGLOBIN. 12.8 g/dL (12.0-16.0); LYMPHOCYTES % 21.4 % (20.0-50.0); MEAN CORPUSCULAR HEMOGLOBIN 26.9 pg (28.0-32.0); MEAN CORPUSCULAR VOLUME 78.8 fL (81.0-99.0); MEAN PLATELET VOLUME 10.1 fl (7.4-10.4); MONOCYTES % 7.3 % (2.0-8.0); NEUTROPHILS % 70.8 % (40.0-76.0); PLATELET 204 x1000/uL (130-400); RED BLOOD CELL COUNT 4.76 mill/uL (4.2-5.4); RED CELL DISTRIBUTION WIDTH 15.1 % (11.6-14.6)
[2020-11-09 06:06] LABS: CHLORIDE 105 mEq/L (98-107)
[2020-11-09] MEDS: BLOOD SUGAR DIAGNOSTIC STRIP TEST SCH ×4 (06:25→21:38)
[2020-11-09] MEDS: DICYCLOMINE HCL 20MG TABLET PO SCH ×3 (06:25→21:24)
[2020-11-09] MEDS: GLIPIZIDE 5MG TABLET PO SCH (06:25)
[2020-11-09] MEDS: OMEPRAZOLE 20MG CAPSULE EXTENDED RELEASE PO SCH (06:25)
[2020-11-09] MEDS: HYDROCODONE/ACETAMINOPHEN 5/325MG TABLET PO PRN ×3 (06:36→21:25)
[2020-11-09] MEDS: INSULIN LISPRO 100 UNITS/ML SUBCUT SCH ×4 (07:36→21:26)
[2020-11-09 08:00] VITALS: BP 119/71
[2020-11-09] MEDS: CLOPIDOGREL 75MG TABLET PO SCH (09:00)
[2020-11-09] MEDS: METOPROLOL TARTRATE 50MG TABLET PO SCH ×2 (09:01→21:23)
[2020-11-09] MEDS: ASPIRIN 81MG EC TABLET PO SCH (09:01)
[2020-11-09 10:01] LABS: *AMPHETAMINES SCREEN URINE NEGATIVE (NEGATIVE); *BARBITURATES SCREEN URINE NEGATIVE (NEGATIVE); *BENZODIAZEPINES SCREEN URINE NEGATIVE (NEGATIVE)
[2020-11-09 10:02] LABS: *COCAINE SCREEN URINE NEGATIVE (NEGATIVE); METHADONE URINE SCREEN NEGATIVE (NEGATIVE); OPIATES URINE SCREEN NEGATIVE (NEGATIVE); PHENCYCLIDINE URINE SCREEN NEGATIVE (NEGATIVE)
[2020-11-09 10:03] LABS: CANNABINOID URINE SCREEN NEGATIVE (NEGATIVE)
[2020-11-09 12:00] VITALS: BP 132/70
[2020-11-09] MEDS: PANTOPRAZOLE SODIUM 40 MG/VIAL IV SCH (13:19)
[2020-11-09 16:00] VITALS: BP 136/68
[2020-11-09 20:00] VITALS: BP 123/66
[2020-11-09] MEDS: ATORVASTATIN CALCIUM 20MG TABLET PO SCH (21:24)
[2020-11-10] VITALS: BP 131/78
[2020-11-10 04:00] VITALS: BP 131/89
[2020-11-10] MEDS: DICYCLOMINE HCL 20MG TABLET PO SCH ×3 (06:35→21:01)
[2020-11-10] MEDS: BLOOD SUGAR DIAGNOSTIC STRIP TEST SCH ×4 (06:36→21:00)
[2020-11-10] MEDS: GLIPIZIDE 5MG TABLET PO SCH (07:07)
[2020-11-10] MEDS: HYDROCODONE/ACETAMINOPHEN 5/325MG TABLET PO PRN ×2 (07:10→14:50)
[2020-11-10] MEDS: INSULIN LISPRO 100 UNITS/ML SUBCUT SCH ×4 (07:50→21:00)
[2020-11-10 08:00] VITALS: BP 126/76
[2020-11-10] MEDS: ASPIRIN 81MG EC TABLET PO SCH (09:20)
[2020-11-10] MEDS: PANTOPRAZOLE SODIUM 40 MG/VIAL IV SCH (09:20)
[2020-11-10] MEDS: CLOPIDOGREL 75MG TABLET PO SCH (09:20)
[2020-11-10] MEDS: METOPROLOL TARTRATE 50MG TABLET PO SCH ×2 (09:21→21:01)
[2020-11-10 12:00] VITALS: BP 126/66
[2020-11-10] MEDS ORDERED: LACTULOSE 20G/30ML UDC PO NR (14:15)
[2020-11-10 16:00] VITALS: BP 116/54
[2020-11-10 20:00] VITALS: BP 119/68
[2020-11-10] MEDS: SODIUM CHLORIDE 0.9% 1,000 ML IV SCH (21:00)
[2020-11-10] MEDS: ATORVASTATIN CALCIUM 20MG TABLET PO SCH (21:01)
[2020-11-11] VITALS: BP 135/72
[2020-11-11 04:00] VITALS: BP 132/75
[2020-11-11] MEDS: HYDROCODONE/ACETAMINOPHEN 5/325MG TABLET PO PRN (05:37)
[2020-11-11] MEDS: BLOOD SUGAR DIAGNOSTIC STRIP TEST SCH ×2 (06:33→12:21)
[2020-11-11] MEDS: GLIPIZIDE 5MG TABLET PO SCH (06:34)
[2020-11-11] MEDS: DICYCLOMINE HCL 20MG TABLET PO SCH (06:34)
[2020-11-11] MEDS: SODIUM CHLORIDE 0.9% 1,000 ML IV SCH (06:35)
[2020-11-11] MEDS: INSULIN LISPRO 100 UNITS/ML SUBCUT SCH ×2 (07:50→12:21)
[2020-11-11 07:52] LABS: BASOPHILS % 0.3 % (0.0-2.0); EOSINOPHILS % 2.4 % (0.0-5.0); HEMOGLOBIN. 14.4 g/dL (12.0-16.0); LYMPHOCYTES % 34.8 % (20.0-50.0); MEAN CORPUSCULAR HEMOGLOBIN 26.9 pg (28.0-32.0); MEAN CORPUSCULAR VOLUME 78.3 fL (81.0-99.0); MEAN PLATELET VOLUME 9.9 fl (7.4-10.4); NEUTROPHILS % 54.5 % (40.0-76.0); PLATELET 227 x1000/uL (130-400); RED BLOOD CELL COUNT 5.36 mill/uL (4.2-5.4); RED CELL DISTRIBUTION WIDTH 15.4 % (11.6-14.6)
[2020-11-11 08:00] VITALS: BP 133/56
[2020-11-11 08:03] LABS: CHLORIDE 100 mEq/L (98-107)
[2020-11-11] MEDS: METOPROLOL TARTRATE 50MG TABLET PO SCH (09:00)
[2020-11-11] MEDS ORDERED: FAMOTIDINE 20MG TABLET PO SCH (09:00)
[2020-11-11] MEDS: ASPIRIN 81MG EC TABLET PO SCH (09:18)
[2020-11-11] MEDS: CLOPIDOGREL 75MG TABLET PO SCH (09:19)
[2020-11-11] MEDS ORDERED: HYDR-4001 MT (11:56)
[2020-11-11 12:00] VITALS: BP 129/72
[2020-11-11 12:22] VITALS: BP 18/129
== END 2020-11-11 14:40 | disposition home or self-care (01) ==
LOC: ER 07:57 → 6EST 12:17 → ENRESERV 13:58
PROVIDERS: ADMIT Internal Medicine; ATTEND Internal Medicine
DX: K83.09 Other cholangitis (principal); E11.9 Type 2 diabetes mellitus without complications; I10 Essential (primary) hypertension; E78.5 Hyperlipidemia, unspecified; E78.00 Pure hypercholesterolemia, unspecified; Z96.659 Presence of unspecified artificial knee joint; J45.909 Unspecified asthma, uncomplicated; Z53.20 Procedure and treatment not carried out because of patient's decision for unspecified reasons; Z79.899 Other long term (current) drug therapy; Z82.49 Family history of ischemic heart disease and other diseases of the circulatory system; Z83.3 Family history of diabetes mellitus; Z79.82 Long term (current) use of aspirin; Z79.84 Long term (current) use of oral hypoglycemic drugs; K59.00 Constipation, unspecified; Z87.19 Personal history of other diseases of the digestive system
CPT/HCPCS: 36415; 76700; 80048; 80053; 80061; 80305; 81003; 82962; 83036; 84443; 84484; 84703; 85025; 93005; 94640; 99285; C9113; J1815; J1885; J7512

== ENCOUNTER 2020-11-26 08:22 | Emergency (ER) | payer MEDICAID, OTHER ==
[~2020-11-26] VITALS: Ht 160 cm; Wt 91.0 kg
[~2020-11-26 08:22] MED LIST changes: -HYDR-4346 MT; -OMEP20CA14 MT; -ONDA4TAB11 PO
[2020-11-26 09:19] LABS: BASOPHILS % 1.1 % (0.0-2.0); EOSINOPHILS % 1.1 % (0.0-5.0); HEMATOCRIT. 38.5 % (36.0-48.0); HEMOGLOBIN. 13.3 g/dL (12.0-16.0); LYMPHOCYTES % 36.7 % (20.0-50.0); MEAN CORPUSCULAR HEMOGLOBIN 26.8 pg (28.0-32.0); MEAN CORPUSCULAR VOLUME 77.5 fL (81.0-99.0); MEAN PLATELET VOLUME 9.8 fl (7.4-10.4); MONOCYTES % 6.8 % (2.0-8.0); NEUTROPHILS % 54.3 % (40.0-76.0); PLATELET 229 x1000/uL (130-400); RED BLOOD CELL COUNT 4.97 mill/uL (4.2-5.4); RED CELL DISTRIBUTION WIDTH 15.2 % (11.6-14.6)
[2020-11-26 09:27] LABS: CHLORIDE 105 mEq/L (98-107)
[2020-11-26 09:28] LABS: CLARITY URINE CLEAR (CLEAR); COLOR URINE YELLOW (YELLOW); KETONES URINE NEGATIVE (NEGATIVE); LEUKOCYTE ESTERASE URINE NEGATIVE (NEGATIVE); NITRITE URINE NEGATIVE (NEGATIVE); OCCULT BLOOD URINE NEGATIVE (NEGATIVE); PH URINE 6.5 (4.5-8.0); PROTEIN URINE NEGATIVE (NEGATIVE); SPECIFIC GRAVITY URINE 1.013 (1.005-1.030); UROBILINOGEN URINE 0.2 E.U./dL (0.2-1.0)
[2020-11-26 09:30] LABS: PROTHROMBIN TIME 11.2 sec (9.6-11.0)
[2020-11-26] MEDS ORDERED: ONDANSETRON HCL 4MG/2ML INJ IV ONE (09:30)
[2020-11-26] MEDS ORDERED: MORPHINE SULFATE 4 MG/ML CPJ (NOT FOR IM USE) IV ONE (09:30)
[2020-11-26] MEDS ORDERED: OMEP20CA14 MT (12:25)
[2020-11-26 13:00] VITALS: BP 136/78
== END 2020-11-26 13:48 | disposition home or self-care (01) ==
LOC: ER 08:22
DX: R10.9 Unspecified abdominal pain (principal); I10 Essential (primary) hypertension; E11.9 Type 2 diabetes mellitus without complications; J45.909 Unspecified asthma, uncomplicated; E78.00 Pure hypercholesterolemia, unspecified; Z79.899 Other long term (current) drug therapy; Z90.49 Acquired absence of other specified parts of digestive tract
CPT/HCPCS: 36415; 71045; 80053; 81003; 83690; 84484; 85025; 85610; 93005; 96374; 96375; 99285; J2270; J2405

== ENCOUNTER 2020-12-02 14:22 | Emergency (ER) | payer OTHER, MEDICAID ==
[~2020-12-02] VITALS: Ht 160 cm; Wt 90.0 kg
[~2020-12-02 14:22] MED LIST changes: +OMEP20CA14 MT
[2020-12-02 16:22] LABS: BASOPHILS % 0.9 % (0.0-2.0); EOSINOPHILS % 1.8 % (0.0-5.0); HEMOGLOBIN. 13.2 g/dL (12.0-16.0); LYMPHOCYTES % 34.4 % (20.0-50.0); MEAN CORPUSCULAR HEMOGLOBIN 27.4 pg (28.0-32.0); MEAN CORPUSCULAR VOLUME 76.9 fL (81.0-99.0); MEAN PLATELET VOLUME 9.5 fl (7.4-10.4); MONOCYTES % 7.6 % (2.0-8.0); NEUTROPHILS % 55.3 % (40.0-76.0); PLATELET 209 x1000/uL (130-400); RED BLOOD CELL COUNT 4.81 mill/uL (4.2-5.4); RED CELL DISTRIBUTION WIDTH 14.9 % (11.6-14.6)
[2020-12-02 16:24] LABS: CHLORIDE 106 mEq/L (98-107)
[2020-12-02 16:25] LABS: PROTHROMBIN TIME 10.6 sec (9.6-11.0)
[2020-12-02] MEDS ORDERED: NITROGLYCERIN 0.4MG TABLET SL SL PRN (16:30)
[2020-12-02] MEDS ORDERED: ASPIRIN 81MG TABLET PO ONE (16:30)
[2020-12-02 22:25] VITALS: BP 102/66
== END 2020-12-02 23:27 | disposition short-term general hospital (02) ==
LOC: ER 14:22
DX: R07.89 Other chest pain (principal); I20.0 Unstable angina; I10 Essential (primary) hypertension; E11.9 Type 2 diabetes mellitus without complications; E78.00 Pure hypercholesterolemia, unspecified
CPT/HCPCS: 36415; 71045; 80053; 83690; 83880; 84484; 85025; 85610; 93005; 99285; Z7610

== ENCOUNTER 2020-12-27 10:39 | Emergency (ER) | payer MEDICAID, OTHER ==
[~2020-12-27] VITALS: Ht 167.6 cm; Wt 91.0 kg
[~2020-12-27 10:39] MED LIST changes: -OMEP40CA12 PO; +OMEP40CA20 PO
[2020-12-27] MEDS ORDERED: ONDANSETRON HCL 4MG/2ML INJ IV STA (11:20)
[2020-12-27] MEDS ORDERED: MORPHINE SULFATE 4 MG/ML CPJ (NOT FOR IM USE) IV STA (11:20)
[2020-12-27 11:44] LABS: CLARITY URINE CLEAR (CLEAR); COLOR URINE YELLOW (YELLOW); KETONES URINE NEGATIVE (NEGATIVE); LEUKOCYTE ESTERASE URINE NEGATIVE (NEGATIVE); NITRITE URINE NEGATIVE (NEGATIVE); OCCULT BLOOD URINE NEGATIVE (NEGATIVE); PH URINE 5.5 (4.5-8.0); PROTEIN URINE NEGATIVE (NEGATIVE); SPECIFIC GRAVITY URINE 1.024 (1.005-1.030); UROBILINOGEN URINE 0.2 E.U./dL (0.2-1.0)
[2020-12-27 11:48] LABS: BASOPHILS % 0.5 % (0.0-2.0); EOSINOPHILS % 1.1 % (0.0-5.0); HEMOGLOBIN. 13.5 g/dL (12.0-16.0); LYMPHOCYTES % 24.6 % (20.0-50.0); MEAN CORPUSCULAR HEMOGLOBIN 26.4 pg (28.0-32.0); MEAN CORPUSCULAR VOLUME 78.1 fL (81.0-99.0); MEAN PLATELET VOLUME 9.3 fl (7.4-10.4); NEUTROPHILS % 67.8 % (40.0-76.0); PLATELET 236 x1000/uL (130-400); RED BLOOD CELL COUNT 5.12 mill/uL (4.2-5.4); RED CELL DISTRIBUTION WIDTH 14.8 % (11.6-14.6)
[2020-12-27 11:53] LABS: CHLORIDE 107 mEq/L (98-107)
[2020-12-27 14:09] VITALS: BP 144/80
== END 2020-12-27 14:10 | disposition home or self-care (01) ==
LOC: ER 10:49
DX: R10.84 Generalized abdominal pain (principal); E78.00 Pure hypercholesterolemia, unspecified; I10 Essential (primary) hypertension; E11.9 Type 2 diabetes mellitus without complications; Z79.84 Long term (current) use of oral hypoglycemic drugs
CPT/HCPCS: 36415; 71045; 74176; 80053; 81003; 83690; 85025; 93005; 96374; 96375; 99285; J2270; J2405

== ENCOUNTER 2021-01-06 08:17 | Emergency (ER) | payer MEDICAID ==
[~2021-01-06] VITALS: Ht 175.3 cm; Wt 82.0 kg
[2021-01-06] MEDS ORDERED: ONDANSETRON HCL 4MG/2ML INJ IV ONE (09:00)
[2021-01-06 09:14] LABS: BASOPHILS % 0.8 % (0.0-2.0); EOSINOPHILS % 1.3 % (0.0-5.0); HEMATOCRIT. 41.1 % (36.0-48.0); LYMPHOCYTES % 30.3 % (20.0-50.0); MEAN CORPUSCULAR HEMOGLOBIN 26.9 pg (28.0-32.0); MEAN CORPUSCULAR VOLUME 78.8 fL (81.0-99.0); MEAN PLATELET VOLUME 9.1 fl (7.4-10.4); MONOCYTES % 6.8 % (2.0-8.0); NEUTROPHILS % 60.8 % (40.0-76.0); PLATELET 241 x1000/uL (130-400); RED BLOOD CELL COUNT 5.21 mill/uL (4.2-5.4)
[2021-01-06 09:21] LABS: CHLORIDE 104 mEq/L (98-107)
[2021-01-06 09:38] LABS: CLARITY URINE CLEAR (CLEAR); COLOR URINE YELLOW (YELLOW); KETONES URINE NEGATIVE (NEGATIVE); LEUKOCYTE ESTERASE URINE TRACE (NEGATIVE); NITRITE URINE NEGATIVE (NEGATIVE); OCCULT BLOOD URINE TRACE (NEGATIVE); PROTEIN URINE NEGATIVE (NEGATIVE); SPECIFIC GRAVITY URINE 1.018 (1.005-1.030); UROBILINOGEN URINE 0.2 E.U./dL (0.2-1.0)
[2021-01-06] MEDS ORDERED: KETOROLAC 15MG/ML VIAL IV ONE (09:45)
[2021-01-06 10:50] VITALS: BP 120/80
[2021-01-06] MEDS ORDERED: BENJ IM (10:58)
== END 2021-01-06 11:33 | disposition home or self-care (01) ==
LOC: ER 08:17
DX: R10.9 Unspecified abdominal pain (principal); I10 Essential (primary) hypertension; E11.9 Type 2 diabetes mellitus without complications; J45.909 Unspecified asthma, uncomplicated; M19.90 Unspecified osteoarthritis, unspecified site
CPT/HCPCS: 36415; 80053; 81003; 83690; 85025; 96374; 96375; 99284; J1885; J2405

== ENCOUNTER 2021-01-13 20:45 | Emergency (ER) | payer MEDICAID ==
[~2021-01-13] VITALS: Ht 172.7 cm; Wt 90.0 kg
[~2021-01-13 20:45] MED LIST changes: +BENJ IM
[2021-01-13] MEDS ORDERED: ONDANSETRON HCL 4MG/2ML INJ IV STA (22:04)
[2021-01-13] MEDS ORDERED: KETOROLAC 30MG/ML VIAL IV STA (22:04)
[2021-01-13] MEDS ORDERED: SODIUM CHLORIDE 0.9% 1,000 ML IV ONE (22:15)
[2021-01-13 23:21] LABS: BASOPHILS % 0.9 % (0.0-2.0); EOSINOPHILS % 1.5 % (0.0-5.0); HEMATOCRIT. 34.1 % (36.0-48.0); HEMOGLOBIN. 11.9 g/dL (12.0-16.0); LYMPHOCYTES % 34.9 % (20.0-50.0); MEAN PLATELET VOLUME 9.4 fl (7.4-10.4); MONOCYTES % 8.1 % (2.0-8.0); NEUTROPHILS % 54.6 % (40.0-76.0); PLATELET 212 x1000/uL (130-400); RED BLOOD CELL COUNT 4.42 mill/uL (4.2-5.4); RED CELL DISTRIBUTION WIDTH 14.8 % (11.6-14.6)
[2021-01-13 23:27] LABS: CHLORIDE 108 mEq/L (98-107)
[2021-01-14] MEDS ORDERED: MORPHINE SULFATE 4 MG/ML CPJ (NOT FOR IM USE) IV ONE
[2021-01-14 00:53] LABS: CLARITY URINE CLOUDY (CLEAR); COLOR URINE YELLOW (YELLOW); KETONES URINE NEGATIVE (NEGATIVE); LEUKOCYTE ESTERASE URINE NEGATIVE (NEGATIVE); NITRITE URINE NEGATIVE (NEGATIVE); OCCULT BLOOD URINE NEGATIVE (NEGATIVE); PH URINE 5.5 (4.5-8.0); PROTEIN URINE NEGATIVE (NEGATIVE); UROBILINOGEN URINE 0.2 E.U./dL (0.2-1.0)
[2021-01-14] MEDS ORDERED: MORPHINE SULFATE 2 MG/ML CPJ (NOT FOR IM USE) IV PRN (02:30)
[2021-01-14 04:00] VITALS: BP 128/68
== END 2021-01-14 05:54 | disposition short-term general hospital (02) ==
LOC: ER 20:45 → CANBEDREQ 01-14 02:10 → ER 01-14 05:54
DX: R07.89 Other chest pain (principal); J45.909 Unspecified asthma, uncomplicated; I10 Essential (primary) hypertension; E11.9 Type 2 diabetes mellitus without complications; Z79.899 Other long term (current) drug therapy
CPT/HCPCS: 36415; 71045; 80053; 81003; 83690; 84484; 85025; 87086; 93005; 96361; 96374; 96375; 96376; 99285; J1885; J2270; J2405; J7030

== ENCOUNTER 2021-01-28 08:50 | Emergency (ER) | payer MEDICAID ==
[~2021-01-28] VITALS: Ht 165.1 cm; Wt 75.0 kg
[2021-01-28] MEDS ORDERED: DIPHENHYDRAMINE 50MG/ML VIAL IV ONE (09:15)
[2021-01-28] MEDS ORDERED: METOCLOPRAMIDE HCL 10MG/2ML VIAL IV ONE (09:15)
[2021-01-28 09:44] LABS: BASOPHILS % 1.4 % (0.0-2.0); EOSINOPHILS % 1.5 % (0.0-5.0); HEMATOCRIT. 38.3 % (36.0-48.0); HEMOGLOBIN. 13.4 g/dL (12.0-16.0); LYMPHOCYTES % 31.5 % (20.0-50.0); MEAN CORPUSCULAR VOLUME 77.2 fL (81.0-99.0); MEAN PLATELET VOLUME 9.6 fl (7.4-10.4); MONOCYTES % 7.4 % (2.0-8.0); NEUTROPHILS % 58.2 % (40.0-76.0); PLATELET 222 x1000/uL (130-400); RED BLOOD CELL COUNT 4.96 mill/uL (4.2-5.4); RED CELL DISTRIBUTION WIDTH 14.9 % (11.6-14.6)
[2021-01-28 09:54] LABS: CHLORIDE 105 mEq/L (98-107)
[2021-01-28 09:58] LABS: CLARITY URINE CLEAR (CLEAR); COLOR URINE YELLOW (YELLOW); KETONES URINE NEGATIVE (NEGATIVE); LEUKOCYTE ESTERASE URINE NEGATIVE (NEGATIVE); NITRITE URINE NEGATIVE (NEGATIVE); OCCULT BLOOD URINE NEGATIVE (NEGATIVE); PROTEIN URINE NEGATIVE (NEGATIVE); SPECIFIC GRAVITY URINE 1.013 (1.005-1.030); UROBILINOGEN URINE 0.2 E.U./dL (0.2-1.0)
[2021-01-28 13:00] VITALS: BP 140/73
[2021-01-28] MEDS ORDERED: ACETAMINOPHEN 325MG TABLET PO ONE (13:00)
== END 2021-01-28 13:19 | disposition home or self-care (01) ==
LOC: ER 08:50
DX: R51.9 Headache, unspecified (principal); I10 Essential (primary) hypertension; E11.9 Type 2 diabetes mellitus without complications; E78.00 Pure hypercholesterolemia, unspecified; Z79.899 Other long term (current) drug therapy; J45.909 Unspecified asthma, uncomplicated
CPT/HCPCS: 36415; 71045; 80053; 81003; 84484; 85025; 96374; 96375; 99285; J1200; J2765; 99284

== ENCOUNTER 2021-04-20 09:38 | Emergency (ER) | payer MEDICAID, OTHER ==
[~2021-04-20] VITALS: Ht 160 cm; Wt 102.0 kg
[2021-04-20 09:45] VITALS: BP 148/98
[2021-04-20 10:57] LABS: BASOPHILS % 0.6 % (0.0-2.0); EOSINOPHILS % 1.1 % (0.0-5.0); HEMATOCRIT. 39.6 % (36.0-48.0); HEMOGLOBIN. 13.6 g/dL (12.0-16.0); LYMPHOCYTES % 23.3 % (20.0-50.0); MEAN CORPUSCULAR HEMOGLOBIN 26.5 pg (28.0-32.0); MEAN CORPUSCULAR VOLUME 77.3 fL (81.0-99.0); MEAN PLATELET VOLUME 9.5 fl (7.4-10.4); MONOCYTES % 6.5 % (2.0-8.0); NEUTROPHILS % 68.5 % (40.0-76.0); PLATELET 237 x1000/uL (130-400); RED BLOOD CELL COUNT 5.12 mill/uL (4.2-5.4); RED CELL DISTRIBUTION WIDTH 14.7 % (11.6-14.6)
[2021-04-20 11:04] LABS: CHLORIDE 105 mEq/L (98-107)
[2021-04-20] MEDS ORDERED: HYDROCODONE/ACETAMINOPHEN 5/325MG TABLET PO ONE (11:30)
[2021-04-20] MEDS ORDERED: KETOROLAC 60MG/2ML VIAL IM ONE (12:00)
== END 2021-04-20 12:11 | disposition home or self-care (01) ==
LOC: ER 09:44
DX: R07.9 Chest pain, unspecified (principal); R51.9 Headache, unspecified; J45.909 Unspecified asthma, uncomplicated; E11.9 Type 2 diabetes mellitus without complications; I10 Essential (primary) hypertension; E78.00 Pure hypercholesterolemia, unspecified; Z79.82 Long term (current) use of aspirin
CPT/HCPCS: 36415; 70450; 71045; 80053; 83880; 84484; 85025; 93005; 96372; 99285; J1885

== ENCOUNTER 2021-09-07 10:58 | Emergency (ER) | payer MEDICAID, OTHER ==
[~2021-09-07] VITALS: Ht 172.7 cm; Wt 82.0 kg
[2021-09-07 11:47] LABS: CHLORIDE 104 mEq/L (98-107)
[2021-09-07 11:53] LABS: BASOPHILS % 0.9 % (0.0-2.0); EOSINOPHILS % 1.5 % (0.0-5.0); HEMATOCRIT. 39.8 % (36.0-48.0); HEMOGLOBIN. 13.4 g/dL (12.0-16.0); LYMPHOCYTES % 32.5 % (20.0-50.0); MEAN CORPUSCULAR HEMOGLOBIN 25.9 pg (28.0-32.0); MEAN CORPUSCULAR VOLUME 76.9 fL (81.0-99.0); MEAN PLATELET VOLUME 9.4 fl (7.4-10.4); NEUTROPHILS % 58.1 % (40.0-76.0); PLATELET 243 x1000/uL (130-400); RED BLOOD CELL COUNT 5.18 mill/uL (4.2-5.4); RED CELL DISTRIBUTION WIDTH 15.1 % (11.6-14.6)
[2021-09-07] MEDS ORDERED: ASPIRIN 325MG EC TABLET PO ONE (15:30)
[2021-09-07] MEDS ORDERED: MAGNESIUM/ALUMINUM HYDROXIDE/SIMETHICONE 30ML UDC PO ONE (15:30)
[2021-09-07 17:17] VITALS: BP 158/93
== END 2021-09-07 18:16 | disposition short-term general hospital (02) ==
LOC: ER 10:58
DX: R10.9 Unspecified abdominal pain (principal); I10 Essential (primary) hypertension; J45.909 Unspecified asthma, uncomplicated; E11.9 Type 2 diabetes mellitus without complications; E78.00 Pure hypercholesterolemia, unspecified; Z79.82 Long term (current) use of aspirin
CPT/HCPCS: 36415; 71045; 80053; 82962; 83880; 84484; 85025; 93005; 99285

== ENCOUNTER 2021-09-14 13:06 | Emergency (ER) | payer OTHER ==
[~2021-09-14] VITALS: Ht 160 cm; Wt 90.0 kg
[~2021-09-14 13:06] MED LIST changes: +ACET-3163 MT; -ACET650T37 MT; -DICY20TA11 PO; +DICY20TA2 PO
[2021-09-14] MEDS ORDERED: VISCOUS LIDOCAINE 2% 15 ML UDC PO STA (14:09)
[2021-09-14] MEDS ORDERED: MAGNESIUM/ALUMINUM HYDROXIDE/SIMETHICONE 30ML UDC PO STA (14:09)
[2021-09-14 14:31] LABS: BASOPHILS % 0.5 % (0.0-2.0); EOSINOPHILS % 0.9 % (0.0-5.0); HEMATOCRIT. 38.5 % (36.0-48.0); HEMOGLOBIN. 13.2 g/dL (12.0-16.0); LYMPHOCYTES % 25.3 % (20.0-50.0); MEAN CORPUSCULAR HEMOGLOBIN 26.6 pg (28.0-32.0); MEAN CORPUSCULAR VOLUME 77.5 fL (81.0-99.0); MEAN PLATELET VOLUME 9.4 fl (7.4-10.4); MONOCYTES % 6.7 % (2.0-8.0); NEUTROPHILS % 66.6 % (40.0-76.0); PLATELET 231 x1000/uL (130-400); RED BLOOD CELL COUNT 4.96 mill/uL (4.2-5.4); RED CELL DISTRIBUTION WIDTH 15.1 % (11.6-14.6)
[2021-09-14 14:38] LABS: *AMPHETAMINES SCREEN URINE NEGATIVE (NEGATIVE); *BARBITURATES SCREEN URINE NEGATIVE (NEGATIVE); *BENZODIAZEPINES SCREEN URINE NEGATIVE (NEGATIVE); *COCAINE SCREEN URINE NEGATIVE (NEGATIVE); CANNABINOID URINE SCREEN NEGATIVE (NEGATIVE); METHADONE URINE SCREEN NEGATIVE (NEGATIVE); OPIATES URINE SCREEN NEGATIVE (NEGATIVE); PHENCYCLIDINE URINE SCREEN NEGATIVE (NEGATIVE)
[2021-09-14 14:52] LABS: ETHANOL BLOOD < 10 mg/dL
[2021-09-14 15:06] LABS: CHLORIDE 104 mEq/L (98-107)
[2021-09-14] MEDS ORDERED: ONDANSETRON HCL 4MG/2ML INJ IV STA (15:48)
[2021-09-14] MEDS ORDERED: MORPHINE SULFATE 4 MG/ML CPJ (NOT FOR IM USE) IV STA (15:48)
[2021-09-14 15:59] VITALS: BP 152/77
[2021-09-14] MEDS ORDERED: OMEP20CA14 MT (17:38)
== END 2021-09-14 18:55 | disposition home or self-care (01) ==
LOC: ER 13:14
DX: R10.9 Unspecified abdominal pain (principal); R07.9 Chest pain, unspecified; J45.909 Unspecified asthma, uncomplicated; E11.9 Type 2 diabetes mellitus without complications; E78.00 Pure hypercholesterolemia, unspecified; I10 Essential (primary) hypertension; Z79.82 Long term (current) use of aspirin
CPT/HCPCS: 36415; 71045; 80053; 80305; 80320; 83690; 83880; 84484; 85025; 93005; 96374; 96375; 99285; J2270; J2405; G0480

== ENCOUNTER 2021-09-19 17:49 | Emergency (ER) | payer OTHER ==
[~2021-09-19] VITALS: Ht 160 cm; Wt 90.0 kg
[2021-09-19] MEDS ORDERED: IPRATROPIUM BROMIDE (0.02%) 0.5MG/2.5ML NEB HHN STA (20:07)
[2021-09-19] MEDS ORDERED: METHYLPREDNISOLONE SOD SUCC 125 MG/2 ML VIAL IV STA (20:07)
[2021-09-19] MEDS ORDERED: ALBUTEROL (0.083%) 2.5MG/3ML NEB HHN SCH (20:30)
[2021-09-19 20:54] LABS: BASOPHILS % 0.5 % (0.0-2.0); EOSINOPHILS % 2.4 % (0.0-5.0); HEMATOCRIT. 38.9 % (36.0-48.0); HEMOGLOBIN. 13.1 g/dL (12.0-16.0); LYMPHOCYTES % 30.1 % (20.0-50.0); MEAN CORPUSCULAR VOLUME 77.2 fL (81.0-99.0); MEAN PLATELET VOLUME 9.2 fl (7.4-10.4); MONOCYTES % 7.7 % (2.0-8.0); NEUTROPHILS % 59.3 % (40.0-76.0); PLATELET 231 x1000/uL (130-400); RED BLOOD CELL COUNT 5.04 mill/uL (4.2-5.4); RED CELL DISTRIBUTION WIDTH 15.6 % (11.6-14.6)
[2021-09-19 21:00] LABS: CHLORIDE 104 mEq/L (98-107)
[2021-09-20] MEDS ORDERED: CEFTRIAXONE 1 G PREMIX 50 ML IV ONE (00:45)
[2021-09-20] MEDS ORDERED: AZITHROMYCIN 500MG/250ML 250 ML IV ONE (00:45)
[2021-09-20 02:14] VITALS: BP 162/80
== END 2021-09-20 02:54 | disposition short-term general hospital (02) ==
LOC: ER 17:49
DX: J18.9 Pneumonia, unspecified organism (principal); J45.909 Unspecified asthma, uncomplicated; E11.9 Type 2 diabetes mellitus without complications; E78.00 Pure hypercholesterolemia, unspecified; I10 Essential (primary) hypertension; Z98.890 Other specified postprocedural states; Z79.899 Other long term (current) drug therapy
CPT/HCPCS: 36415; 71045; 80053; 83880; 84484; 85025; 93005; 94640; 96374; 99285; J2930; Z7610

== ENCOUNTER 2021-10-04 15:03 | Emergency (ER) | payer OTHER ==
[~2021-10-04] VITALS: Ht 160 cm; Wt 114.0 kg
[2021-10-04] MEDS ORDERED: ASPIRIN 325MG EC TABLET PO ONE (20:00)
[2021-10-04] MEDS ORDERED: NITROGLYCERIN OINT 1GM/INCH UDPKT TD ONE (20:00)
[2021-10-04 20:32] LABS: CLARITY URINE CLEAR (CLEAR); COLOR URINE YELLOW (YELLOW); KETONES URINE NEGATIVE (NEGATIVE); LEUKOCYTE ESTERASE URINE NEGATIVE (NEGATIVE); NITRITE URINE NEGATIVE (NEGATIVE); OCCULT BLOOD URINE NEGATIVE (NEGATIVE); PH URINE 6.5 (4.5-8.0); PROTEIN URINE NEGATIVE (NEGATIVE); SPECIFIC GRAVITY URINE 1.016 (1.005-1.030)
[2021-10-04 21:24] LABS: BASOPHILS % 0.4 % (0.0-2.0); EOSINOPHILS % 1.9 % (0.0-5.0); HEMATOCRIT. 39.4 % (36.0-48.0); HEMOGLOBIN. 13.6 g/dL (12.0-16.0); LYMPHOCYTES % 36.9 % (20.0-50.0); MEAN CORPUSCULAR HEMOGLOBIN 26.6 pg (28.0-32.0); MEAN CORPUSCULAR VOLUME 77.1 fL (81.0-99.0); MEAN PLATELET VOLUME 9.3 fl (7.4-10.4); MONOCYTES % 7.8 % (2.0-8.0); PLATELET 228 x1000/uL (130-400); RED BLOOD CELL COUNT 5.11 mill/uL (4.2-5.4); RED CELL DISTRIBUTION WIDTH 15.5 % (11.6-14.6)
[2021-10-04 21:35] LABS: CHLORIDE 104 mEq/L (98-107)
[2021-10-04 21:41] VITALS: BP 147/84
== END 2021-10-04 22:16 | disposition home or self-care (01) ==
LOC: ER 15:03
DX: R07.89 Other chest pain (principal); I10 Essential (primary) hypertension; E78.00 Pure hypercholesterolemia, unspecified; E11.9 Type 2 diabetes mellitus without complications; J45.909 Unspecified asthma, uncomplicated; Z79.899 Other long term (current) drug therapy
CPT/HCPCS: 36415; 71045; 80053; 81003; 82962; 83880; 84484; 85025; 93005; 99285

== ENCOUNTER 2021-11-10 12:35 | Emergency (ER) | payer OTHER ==
[~2021-11-10] VITALS: Ht 172.7 cm; Wt 90.0 kg
[2021-11-10 12:51] VITALS: BP 142/67
[2021-11-10 13:37] LABS: BASOPHILS % 0.7 % (0.0-2.0); EOSINOPHILS % 1.7 % (0.0-5.0); HEMATOCRIT. 41.4 % (36.0-48.0); HEMOGLOBIN. 14.2 g/dL (12.0-16.0); LYMPHOCYTES % 32.6 % (20.0-50.0); MEAN CORPUSCULAR HEMOGLOBIN 26.5 pg (28.0-32.0); MEAN CORPUSCULAR VOLUME 77.1 fL (81.0-99.0); MEAN PLATELET VOLUME 8.8 fl (7.4-10.4); MONOCYTES % 7.1 % (2.0-8.0); NEUTROPHILS % 57.9 % (40.0-76.0); PLATELET 254 x1000/uL (130-400); RED BLOOD CELL COUNT 5.37 mill/uL (4.2-5.4); RED CELL DISTRIBUTION WIDTH 15.4 % (11.6-14.6)
[2021-11-10 13:45] LABS: CHLORIDE 103 mEq/L (98-107)
== END 2021-11-10 17:20 | disposition home or self-care (01) ==
LOC: ER 12:35
DX: R07.9 Chest pain, unspecified (principal); M19.90 Unspecified osteoarthritis, unspecified site; E11.9 Type 2 diabetes mellitus without complications; J40 Bronchitis, not specified as acute or chronic; I10 Essential (primary) hypertension; Z79.82 Long term (current) use of aspirin; Z90.49 Acquired absence of other specified parts of digestive tract; Z98.890 Other specified postprocedural states
CPT/HCPCS: 36415; 71045; 80053; 83880; 84484; 85025; 93005; 99285

== ENCOUNTER 2021-11-27 16:39 | Emergency (ER) | payer OTHER ==
[~2021-11-27] VITALS: Ht 162.6 cm; Wt 91.0 kg
[2021-11-27] MEDS ORDERED: NITROGLYCERIN 0.4MG TABLET SL SL PRN (21:00)
[2021-11-27] MEDS ORDERED: ASPIRIN 81MG TABLET PO ONE (21:00)
[2021-11-27 21:15] LABS: BASOPHILS % 1.1 % (0.0-2.0); EOSINOPHILS % 1.4 % (0.0-5.0); HEMATOCRIT. 39.3 % (36.0-48.0); HEMOGLOBIN. 13.2 g/dL (12.0-16.0); LYMPHOCYTES % 34.2 % (20.0-50.0); MEAN CORPUSCULAR HEMOGLOBIN 26.3 pg (28.0-32.0); MEAN CORPUSCULAR VOLUME 77.9 fL (81.0-99.0); MEAN PLATELET VOLUME 8.9 fl (7.4-10.4); NEUTROPHILS % 56.3 % (40.0-76.0); PLATELET 259 x1000/uL (130-400); RED BLOOD CELL COUNT 5.04 mill/uL (4.2-5.4); RED CELL DISTRIBUTION WIDTH 15.7 % (11.6-14.6)
[2021-11-27 21:20] LABS: CHLORIDE 102 mEq/L (98-107)
[2021-11-27 21:23] LABS: D-DIMER 0.39 mg/L FEU (<0.50); PARTIAL THROMBOPLASTIN TIME 26.7 sec (23.4-31.0); PROTHROMBIN TIME 10.9 sec (9.6-11.0)
[2021-11-27 21:29] LABS: BETA HYDROXYBUTYRATE 0.1 mMol/L (0.0-0.3)
[2021-11-27] MEDS ORDERED: CEFTRIAXONE 1 G PREMIX 50 ML IV ONE (23:00)
[2021-11-27] MEDS ORDERED: ASPIRIN 81MG TABLET PO NR (23:00)
[2021-11-28] LABS: CLARITY URINE CLEAR (CLEAR); COLOR URINE YELLOW (YELLOW); KETONES URINE NEGATIVE (NEGATIVE); LEUKOCYTE ESTERASE URINE NEGATIVE (NEGATIVE); NITRITE URINE NEGATIVE (NEGATIVE); OCCULT BLOOD URINE TRACE (NEGATIVE); PH URINE 5.5 (4.5-8.0); PROTEIN URINE NEGATIVE (NEGATIVE); SPECIFIC GRAVITY URINE 1.019 (1.005-1.030); UROBILINOGEN URINE 0.2 E.U./dL (0.2-1.0)
[2021-11-28 01:31] VITALS: BP 156/94
== END 2021-11-28 03:07 | disposition short-term general hospital (02) ==
LOC: ER 16:39 → CANBEDREQ 11-28 01:51 → ER 11-28 03:07
DX: R07.89 Other chest pain (principal); E11.9 Type 2 diabetes mellitus without complications; M19.90 Unspecified osteoarthritis, unspecified site; I10 Essential (primary) hypertension; Z20.822 Contact with and (suspected) exposure to COVID-19; Z86.718 Personal history of other venous thrombosis and embolism; Z90.49 Acquired absence of other specified parts of digestive tract; Z79.82 Long term (current) use of aspirin; Z79.01 Long term (current) use of anticoagulants
CPT/HCPCS: 36415; 71045; 80053; 81003; 82010; 82962; 83880; 84484; 85025; 85379; 85610; 85730; 87086; 87426; 93005; 93970; 96365; 99285; C9803; J0696; Z7610